=== PATIENT | female | born 1985 | race Caucasian/White ===

== ENCOUNTER 2018-02-25 12:33 | Emergency (ER) | payer SELFPAY ==
[2018-02-25 12:51] VITALS: BP 111/62; PULSE 59; TEMP 98.6; BMI 29.3
[2018-02-25] MEDS ORDERED: ONDANSETRON 4 MG/2 ML VIAL IVPUSH ONE (14:32)
[2018-02-25] MEDS ORDERED: SODIUM CHLORIDE 1,000 ML IV STA ×2 (14:33→15:38)
[2018-02-25 14:38] LABS: BASO % 0.6 % (0-2.0); EOS % 0.6 % (0-4.5); HEMATOCRIT 41.2 % (32.4-45.2); HEMOGLOBIN 14.1 GM/dL (10.7-15.3); LYMPH % 20.9 % (8-40); MCH 30.1 pg (25.7-33.7); MCHC 34.2 g/dl (32.0-36.0); MEAN PLT VOLUME 9.2 fl (7.5-11.1); MONO % 6.1 % (3.8-10.2); NEUT % 71.8 % (42.8-82.8); PLATELET COUNT 232 K/MM3 (134-434); RBC 4.68 M/mm3 (3.60-5.2); RDW 13.6 % (11.6-15.6); WHITE BLOOD COUNT 12.5 K/mm3 (4.0-10.0)
[2018-02-25] MEDS ORDERED: ONDANSETRON 4 MG/2 ML VIAL ONE (14:42)
--- NOTE | 2018-02-25 14:43 | PDOC ---
History of Present Illness <Thierry Mcguire - Last Filed: 02/25/18 16:39> - General History Source: Patient - History of Present Illness Initial Comments: 02/25/18 14:35 33F G7 [id number] w/ pmhx of multiple miscarriages presents with 1 week history of nausea associated with non-bloody vomiting. Pt states she last saw her OBGYN ( Dr. Little) a week ago and was given Reglan, but with no symptomatic improvement. Pt states she has experienced similar severe symptoms in the past during her previous pregnancies with severe dehydration that "caused the miscarriages." Admits to headaches, dizziness, lightheadedness. She also admits to lower abdominal pain. Denies fever/chills, chest pain, sob, urinary/bowel symptoms, blood in urine/stool, vaginal bleeding. PMHx: multiple miscarriages PSHx: Denies FHx: Denies Social: Denies tobacoo, alcohol, rec drug use. Denies recent travel. <Lucita Devi - Last Filed: 02/25/18 17:37> - General Chief Complaint: Nausea Stated Complaint: NAUSEA (7 WKS ) Time Seen by Provider: 02/25/18 14:03 Past History <ShaylaThierry - Last Filed: 02/25/18 16:39> - Past Medical History Anemia: No Asthma: No Cancer: No Cardiac Disorders: No COPD: No CHF: No Diabetes: No GI Disorders: Yes (hyperemesis) HTN: No Liver Disease: No - Immunization History Immunization Up to Date: No - Suicide/Smoking/Psychosocial Hx Smoking History: Never smoked Have you smoked in the past 12 months: No Information on smoking cessation initiated: No Hx Alcohol Use: No Drug/Substance Use Hx: No Substance Use Type: None Hx Substance Use Treatment: No <Lucita Devi - Last Filed: 02/25/18 17:37> - Past Medical History Allergies/Adverse Reactions: Allergies Allergy/AdvReac Type Severity Reaction Status Date / Time No Known Allergies Allergy Verified 02/25/18 12:49 Home Medications: Ambulatory Orders Nitrofurantoin Monohyd/M-Cryst [Macrobid -] 100 mg PO BID #14 capsule 10/26/14 Ondansetron [Zofran *Odt*] 8 mg SL TID PRN #21 od.tablet 10/26/14 Vitamins (Sjr) - 1 tab PO DAILY #30 tablet 10/26/14 Ondansetron [Zofran Odt -] 4 mg SL TID #21 od.tablet 02/25/18 Review of Systems - Review of Systems Able to Perform ROS?: Yes Is the patient limited Citizen Of [place] proficient: No Constitutional: No: Fever HEENTM: No: Recent change in vision Respiratory: No: Cough Cardiac (ROS): Yes: Lightheadedness. No: Chest Pain, Chest Tightness ABD/GI: Yes: Other (lower abdominal pain, below umbilicus). No: Diarrhea, Nausea, Vomiting : Yes: See HPI Neurological: Yes: Headache. No: Numbness, Paresthesia Hematologic/Lymphatic: No: Easy Bleeding, Easy Bruising <Lucita Devi - Last Filed: 02/25/18 17:37> *Physical Exam - Vital Signs Last Vital Signs Temp Pulse Resp BP Pulse Ox 98.6 F 59 L 18 111/62 100 02/25/18 12:49 02/25/18 12:49 02/25/18 12:49 02/25/18 12:49 02/25/18 12:49 <Thierry Mcguire - Last Filed: 02/25/18 16:39> - Vital Signs Last Vital Signs Temp Pulse Resp BP Pulse Ox 98.6 F 59 L 18 111/62 100 02/25/18 12:49 02/25/18 12:49 02/25/18 12:49 02/25/18 12:49 02/25/18 12:49 - Physical Exam General Appearance: Yes: Nourished, Appropriately Dressed HEENT: positive: Normal Voice Neck: positive: Supple. negative: Tender Respiratory/Chest: positive: Lungs Clear, Normal Breath Sounds Cardiovascular: positive: Regular Rhythm, Regular Rate, S1, S2 Vascular Pulses: Dorsalis-Pedis (R): 2+, Doralis-Pedis (L): 2+ Female Pelvic Exam: positive: normal external exam, adnexal tenderness (left) Gastrointestinal/Abdominal: positive: Normal Bowel Sounds Extremity: positive: Normal Range of Motion Neurologic: positive: restaurant recruiter II-XII NML intact, Motor Strength 5/5 <Lucita Devi - Last Filed: 02/25/18 17:37> ED Treatment Course - LABORATORY CBC & Chemistry Diagram: 02/25/18 14:04 02/25/18 14:04 - ADDITIONAL ORDERS Additional order review: Laboratory Results 02/25/18 02/25/18 14:31 14:04 Sodium 136 Potassium 3.9 Chloride 103 Carbon Dioxide 26 Anion Gap 7 L BUN 10 Creatinine 0.6 Creat Clearance w eGFR > 60 Random Glucose 93 Calcium 9.0 Total Bilirubin 0.5 AST 16 ALT 29 Alkaline Phosphatase 103 Total Protein 7.8 Albumin 3.8 Beta HCG, Quant 08346.2 Urine Color Yellow Urine Appearance Cloudy Urine pH 7.0 Ur Specific [place] 1.017 Urine Protein Negative Urine Glucose (UA) Negative Urine Ketones Trace H Urine Blood Negative Urine Nitrite Negative Urine Bilirubin Negative Urine Urobilinogen 4.0 e.u/dl H Ur Leukocyte Esterase 1+ H Urine WBC (Auto) 4 Urine RBC (Auto) 2 Ur Epithelial Cells Moderate Urine Bacteria Moderate Urine Mucus Rare Urine Yeast Moderate 02/25/18 14:04 RBC 4.68 MCV 88.0 MCHC 34.2 RDW 13.6 MPV 9.2 D Neutrophils % 71.8 Lymphocytes % 20.9 D Monocytes % 6.1 Eosinophils % 0.6 D Basophils % 0.6 - Medications Given in the ED: ED Medications Discontinued Medications Generic Name Dose Route Start Last Admin Trade Name Paula PRN Reason Stop Dose Admin Sodium Chloride 1,000 mls @ 1,000 mls/hr 02/25/18 14:33 02/25/18 14:46 Normal Saline - IV 02/25/18 15:32 1,000 mls/hr ASDIR STA Administration Sodium Chloride 1,000 mls @ 1,000 mls/hr 02/25/18 15:38 02/25/18 15:55 Normal Saline - IV 02/25/18 16:37 1,000 mls/hr ASDIR STA Administration Ondansetron HCl 4 mg 02/25/18 14:32 02/25/18 14:46 Zofran Injection IVPUSH 02/25/18 14:33 4 mg ONCE ONE Administration <Thierry Mcguire - Last Filed: 02/25/18 16:39> - LABORATORY CBC & Chemistry Diagram: 02/25/18 14:04 02/25/18 14:04 <Lucita Devi - Last Filed: 02/25/18 17:37> Medical Decision Making - Medical Decision Making 02/25/18 15:01 Nausea and vomiting in setting of -will give Zofran, IVf -CBC/CMP -continue to monitor for symptomatic improvement 02/25/18 15:23 -Transabdominal u/s done by Dr. Martinez/Dr. Green: impression: live IUP, 7 wk 0 days by CRL. impression: normal gallbladder. 02/25/18 15:39 Pt admits to symptomatic improvement. -Additional IVf given -Cont to monitor 02/25/18 17:25 DC to home with recommendation to follow up with OBGYN. Recommended to take Zofran, Reglan, Benadryl. Advised to eat bland diet as tolerated. <Lucita Devi - Last Filed: 02/25/18 17:37> *DC/Admit/Observation/Transfer - Discharge Dispostion Decision to Admit order: No <Thierry Mcguire - Last Filed: 02/25/18 16:39> - Discharge Dispostion Decision to Admit order: No <Lucita Devi - Last Filed: 02/25/18 17:37> Diagnosis at time of Disposition: Hyperemesis gravidarum - Discharge Dispostion Disposition: HOME Condition at time of disposition: Improved - Prescriptions Prescriptions: Ondansetron [Zofran Odt -] 4 mg SL TID #21 od.tablet - Referrals Referrals: Yudy Little MD [Staff Physician] - - Patient Instructions Printed Discharge Instructions: Hyperemesis Gravidarum Additional Instructions: You were seen in the ED for complaints of persistent nausea. In the ED, you were given IV Zofran and fluids for your symptoms. An abdominal ultrasound was performed that showed an intrauterine of 7 weeks with activity. Your symptoms improved during your hospital. Please continue taking Reglan, Zofran as prescribed. You may take Benadryl once a day for the next 1-2 days as needed. Today fluids only if no vomiting by tomorrow midday may proceed to a bland diet. Return to ED if unable to tolerate fluids persistent vomiting any severe abdominal pain or for any concerns follow-up with your MAILROOM COORDINATOR in 2-3 days. - Post Discharge Activity Forms/Work/School Notes: Back to Work
[2018-02-25 14:45] LABS: URINE APPEARANCE CLOUDY; URINE BILIRUBIN NEGATIVE (<2.0 mg/dL); URINE COLOR YELLOW; URINE GLUCOSE (UA) NEGATIVE (NEGATIVE); URINE KETONE TRACE (NEGATIVE); URINE LEUK ESTERASE 1+ (NEGATIVE); URINE NITRITE NEGATIVE (NEGATIVE); URINE PROTEIN NEGATIVE (NEGATIVE); URINE UROBILINOGEN 4.0 E.U/dl mg/dL (0.2-1.0)
[2018-02-25 14:51] LABS: EPI CELLS MODERATE /HPF (FEW); URINE BACTERIA MODERATE /hpf (NONE SEEN); URINE MUCUS RARE; YEAST MODERATE
--- NOTE | 2018-02-25 15:25 | PDOC ---
*Physical Exam - Vital Signs Last Vital Signs Temp Pulse Resp BP Pulse Ox 98.6 F 59 L 18 111/62 100 02/25/18 12:49 02/25/18 12:49 02/25/18 12:49 02/25/18 12:49 02/25/18 12:49 - Physical Exam General Appearance: Yes: Nourished Gastrointestinal/Abdominal: positive: Flat, Soft. negative: Tender ED Treatment Course - LABORATORY CBC & Chemistry Diagram: 02/25/18 14:04 02/25/18 14:04 - ADDITIONAL ORDERS Additional order review: Laboratory Results 02/25/18 14:31 Urine Color Yellow Urine Appearance Cloudy Urine pH 7.0 Ur Specific [place] 1.017 Urine Protein Negative Urine Glucose (UA) Negative Urine Ketones Trace H Urine Blood Negative Urine Nitrite Negative Urine Bilirubin Negative Urine Urobilinogen 4.0 e.u/dl H Ur Leukocyte Esterase 1+ H Urine WBC (Auto) 4 Urine RBC (Auto) 2 Ur Epithelial Cells Moderate Urine Bacteria Moderate Urine Mucus Rare Urine Yeast Moderate 02/25/18 14:04 RBC 4.68 MCV 88.0 MCHC 34.2 RDW 13.6 MPV 9.2 D Neutrophils % 71.8 Lymphocytes % 20.9 D Monocytes % 6.1 Eosinophils % 0.6 D Basophils % 0.6 - Medications Given in the ED: ED Medications Discontinued Medications Generic Name Dose Route Start Last Admin Trade Name Freq PRN Reason Stop Dose Admin Ondansetron HCl 4 mg 02/25/18 14:32 02/25/18 14:46 Zofran Injection IVPUSH 02/25/18 14:33 4 mg ONCE ONE Administration Medical Decision Making - Medical Decision Making 02/25/18 15:21 33 you F (6ab) here approx 7 weeks with n/v. has thrown up 3 times today for last few days. has had hyperemesis with prior pregnancies. called to bedside to do pocus , ob evalute iup and well being, focused ED ultrasound transabdominal OB indication: document iup, well being. uterus scanned in two planes using curvilinear probe. gestational sac noted, pole noted, crown rump length measured 7 wk 0 days. heart rate noted 122 bpm. impression: live IUP, 7 wk 0 days by CRL. focused ED ultrasound ruq, indication , n/v r/o gallstones gallbladder scanned in two planes. no wall thickening, no stones, negative sonographyic diana's signs. anterior gallbladder wall measured 1.6,, common bile duct measured 3 mm. impression: normal gallbladder. cirilli/ [place]
[2018-02-25 15:28] LABS: ALBUMIN 3.8 g/dl (3.4-5.0); ALK PHOS 103 U/L (45-117); ANION GAP 7 MMOL/L (8-16); BILIRUBIN,TOTAL 0.5 mg/dL (0.2-1); BLOOD UREA NITROGEN 10 mg/dL (7-18); CHLORIDE 103 mmol/L (98-107); CO2 26 mmol/L (21-32); CREATININE 0.6 mg/dL (0.55-1.3); GLUCOSE,RANDOM 93 mg/dL (74-106); POTASSIUM 3.9 mmol/L (3.5-5.1); SGOT/AST 16 U/L (15-37); SGPT/ALT 29 U/L (13-61); SODIUM 136 mmol/L (136-145); TOT PROT 7.8 g/dl (6.4-8.2)
--- NOTE | 2018-02-25 15:47 | PDOC ---
Attending Attestation - HPI HPI: 02/25/18 15:49 The patient is a 33 year old A6 female currently 7 weeks who presents to the emergency department for evaluation of a 1 week history of nausea. Patient reports a 1 week history of nausea with non bloody emesis. Patient also reports mild abdominal pain and decrease in PO tolerance. She states she was given Reglan by her DADO OPERATOR last week. Patient reports having ultrasound done last week by Dr. Litlte which shows no confirmed IUP. - Physicial Exam PE: Vitals: Triage Vital signs reviewed General Appearance: no acute distress, well nourished well developed, Head: Atraumatic, normocephalic Neck: Supple Chest Wall: Nontender Cardiac: Regular rate and rhythm, no murmurs, no rubs, no gallops, Lungs: Clear to auscultation bilateral, good air movement bilaterally, Abdomen: (+)Very mild diffuse abdominal discomfort. Extremities: Full range of motion to all extremities, no cyanosis, clubbing, or edema Skin: Warm and dry, no rashes or lesions, no petechiae Psych: normal mood, normal affect. - Medical Decision Making The patient is a 33 year old A6 female currently 7 weeks who presents to the emergency department for evaluation of a 1 week history of nausea. Plan: CBC CMP IV medication Transvaginal Ultrasound Urinalysis <Manuelito Bhagat - Last Filed: 02/25/18 15:49> - Resident Resident Name: Lucita Devi - ED Attending Attestation I have performed the following: I have examined & evaluated the patient, The case was reviewed & discussed with the resident, I agree w/resident's findings & plan, Exceptions are as noted - Medical Decision Making Positive IUP on transvaginal ultrasound. History examination consistent with hyperemesis gravidarum. Status post Zofran patient tolerating fluids. We'll discharge on her prescription for Reglan will add a prescription for Zofran and allow patient to take when necessary Benadryl as needed at night for nausea. She'll follow-up with her DADO OPERATOR in 2-3 days she'll return to emergency department for any severe worsening symptoms or for any concerns. <Thierry Mcguire - Last Filed: 02/25/18 16:26> Attestations - Attestations Documentation prepared by Manuelito Bhagat, acting as medical staff services coordinator for Thierry Mcguire MD. <Manuelito Bhagat - Last Filed: 02/25/18 15:49>
== END 2018-02-25 17:01 | disposition home or self-care (01) ==
LOC: JER 12:33
PROC: 3E0337Z Introduction of Electrolytic and Water Balance Substance into Peripheral Vein, Percutaneous Approach (ICD-10-PCS; principal; 2018-02-25)
PROC: 3E033GC Introduction of Other Therapeutic Substance into Peripheral Vein, Percutaneous Approach (ICD-10-PCS; 2018-02-25)
DX: O26.891 Other specified pregnancy related conditions, first trimester (principal); O21.0 Mild hyperemesis gravidarum; Z3A.01 Less than 8 weeks gestation of pregnancy
CPT/HCPCS: 36415; 80053; 81003; 81015; 84702; 85025; 87086; 99282-25; J7030

== ENCOUNTER 2018-03-02 18:31 | Observation (INO) | payer BC ==
[2018-03-02 19:03] VITALS: BMI 29.1
--- NOTE | 2018-03-02 19:24 | PDOC ---
History of Present Illness - General Chief Complaint: Nausea/Vomiting Stated Complaint: FATIGUE, DEHYDRATION Time Seen by Provider: 03/02/18 19:16 - History of Present Illness Initial Comments: 33-year-old A5 currently seven weeks with no significant past medical history currently seven weeks presenting with hyperemesis. Patient presented on 02/25/18 for the same complaint. She states that she has up to 10 episodes of NBNB vomiting per day for the last two weeks. Patient reports lower abdominal pain that she attributes to retching. She believes she has lost weight but has not weighed herself on a scale. Patient has had hyperemesis in all her previous pregnancies and was treated with Reglan and Zofran IV as po meds do not offer any palliation of her symptoms. In her most recent , patient was admitted to the hospital for five days. Hyperemesis symptoms diminished as her progressed in the second and third trimester. Her first four pregnancies were electively terminated because she could not tolerate the hyperemesis. She reports that her fifth resulted in miscarriage due to dehydration. Currently endorses weakness and lightheadedness as she has not been able to keep anything down. Patient also reports constipation as her last bowel movement was two weeks ago. Denies fevers, chills , chest pain, shortness of breath, dysuria, hematuria, contractions, vaginal discharge, or vaginal bleeding. Past History - Past Medical History Allergies/Adverse Reactions: Allergies Allergy/AdvReac Type Severity Reaction Status Date / Time No Known Allergies Allergy Verified 03/02/18 18:59 Home Medications: Ambulatory Orders Nitrofurantoin Monohyd/M-Cryst [Macrobid -] 100 mg PO BID #14 capsule 10/26/14 Ondansetron [Zofran *Odt*] 8 mg SL TID PRN #21 od.tablet 10/26/14 Vitamins (Sjr) - 1 tab PO DAILY #30 tablet 10/26/14 Ondansetron [Zofran Odt -] 4 mg SL TID #21 od.tablet 02/25/18 Nitrofurantoin Monohyd/M-Cryst [Macrobid -] 100 mg PO BID #14 capsule 03/02/18 Anemia: No Asthma: No Cancer: No Cardiac Disorders: No COPD: No CHF: No Diabetes: No GI Disorders: Yes (hyperemesis) HTN: No Liver Disease: No - Immunization History Immunization Up to Date: No - Suicide/Smoking/Psychosocial Hx Smoking History: Never smoked Have you smoked in the past 12 months: No Hx Alcohol Use: No Drug/Substance Use Hx: No Substance Use Type: None Hx Substance Use Treatment: No Review of Systems - Review of Systems Comments:: Constitutional: no fever, no chills HEENT: no throat pain, no dysphagia Cardiovascular: no chest pain, no palpitations Respiratory: no cough, no shortness of breath Gastrointestinal: +abdominal pain, +nausea, +vomiting, no diarrhea, + constipation Genitourinary: no dysuria, no frequency Musculoskeletal: no myalgia, no arthralgia Skin: no rash, no itching Neurologic: +headache, +lightheadedness *Physical Exam - Vital Signs Last Vital Signs Temp Pulse Resp BP Pulse Ox 99.2 F 63 18 123/80 98 03/02/18 19:02 03/02/18 19:02 03/02/18 19:02 03/02/18 19:02 03/02/18 19:02 - Physical Exam Comments: General: Awake, alert, and fully oriented, in no acute distress Head: No signs of trauma Eyes: EOMI, sclera anicteric ENT: Dry mucus membranes Neck: Normal ROM, supple Lungs: Lungs clear, Normal breath sounds Cardio: Regular rhythm, S1 and S2 present Abdomen: Tender to palpation in suprapubic area. Soft, nondistended. No guarding , no rebound, no masses. No CVA tenderness Extremities: Normal range of motion, Distal pulses present SKIN: Warm, Dry, normal turgor Neurologic: Cranial nerves II through XII grossly intact. Normal speech ED Treatment Course - LABORATORY CBC & Chemistry Diagram: 03/02/18 20:18 03/02/18 20:18 Medical Decision Making - Medical Decision Making 33-year-old A5 currently seven weeks with no significant past medical history currently seven weeks presenting with hyperemesis. -Labs -IV fluids -IV zofran -Will reassess 03/02/18 20:05 Will reassess. 03/02/18 20:38 Patient still feeling nauseous. Ordered Reglan and another 1LNS WBC=16.8 03/02/18 21:03 Patient reporting only minimal relief of her nausea. D5-LR running. Will reassess 03/02/18 22:[address] Sheridan who accepted patient for admission 03/02/18 22:30 *DC/Admit/Observation/Transfer Diagnosis at time of Disposition: Hyperemesis gravidarum - Discharge Dispostion Condition at time of disposition: Guarded Decision to Admit order: Yes - Prescriptions Prescriptions: Nitrofurantoin Monohyd/M-Cryst [Macrobid -] 100 mg PO BID #14 capsule - Referrals - Patient Instructions - Post Discharge Activity
[2018-03-02] MEDS ORDERED: SODIUM CHLORIDE 1,000 ML IV STA ×2 (19:43→21:05)
[2018-03-02] MEDS ORDERED: ONDANSETRON 4 MG/2 ML VIAL IVPUSH ONE (19:43)
--- NOTE | 2018-03-02 19:48 | PDOC ---
Attending Attestation - HPI HPI: 03/02/18 19:56 The patient is a 33 year old female, A4, 7 weeks with no significant PMH who presents to the emergency department with hyperemesis for the past 2 weeks. Patient denies any complications in her up until this point. Patient reports she has been vomiting up to 10 times per day over the past 2 weeks and associated abdominal pain. Patient has been eating less as she does not want to throw up. Patient saw Dr. Kingsley, TABLE RUNNER, who prescribed her zofran and reglan with no relief of her symptoms. Patient was admitted for hyperemesis for 5 days in her prior . The patient denies chest pain, shortness of breath, headache and dizziness. Denies fever, chills, diarrhea and constipation. Denies dysuria, frequency, urgency and hematuria. Allergies: NKA Past surgical history: None reported. Social history: No reported alcohol, drug or cigarette use. - Physicial Exam PE: 03/02/18 21:10 ADULT EXAM GENERAL: Awake, alert, and fully oriented, in no acute distress HEAD: No signs of trauma EYES: PERRLA, EOMI, sclera anicteric, conjunctiva clear ENT: Auricles normal inspection, hearing grossly normal, nares patent, oropharynx clear without exudates. Moist mucosa NECK: Normal ROM, supple, no lymphadenopathy, JVD, or masses LUNGS: Breath sounds equal, clear to auscultation bilaterally. No wheezes, and no crackles HEART: Regular rate and rhythm, normal S1 and S2, no murmurs, rubs or gallops ABDOMEN: Soft, nontender, normoactive bowel sounds. No guarding, no rebound. No masses EXTREMITIES: Normal range of motion, no edema. No clubbing or cyanosis. No cords , erythema, or tenderness NEUROLOGICAL: Cranial nerves II through XII grossly intact. Normal speech, normal gait SKIN: Warm, Dry, normal turgor, no rashes or lesions noted. <Connie Ivan - Last Filed: 03/02/18 21:10> - Resident Resident Name: Sissy Slater - ED Attending Attestation I have performed the following: I have examined & evaluated the patient, The case was reviewed & discussed with the resident, I agree w/resident's findings & plan - Medical Decision Making 03/02/18 19:51 Pt had a UTI the last time she was here. She will be retested and treated with NSS and macrobid and zofran. 03/02/18 22:22 Pt received 1L NSS and 1L D5LR and zofran and reglan and she is still not feeling better. We will speak to her MARKETING INTELLIGENCE ANALYST Dr. Little for possible admission to obs. <Beatriz Ng - Last Filed: 03/02/18 22:23>
[2018-03-02] MEDS ORDERED: NITROFURANTOIN MACROCRYSTAL 50 MG CAPSULE (FP) PO SCH (20:00)
[2018-03-02] MEDS ORDERED: ONDANSETRON 4 MG/2 ML VIAL ONE ×3 (20:16→22:38)
[2018-03-02 20:23] LABS: BASO % 0.6 % (0-2.0); EOS % 0.4 % (0-4.5); HEMATOCRIT 38.9 % (32.4-45.2); HEMOGLOBIN 13.5 GM/dL (10.7-15.3); LYMPH % 18.3 % (8-40); MCHC 34.7 g/dl (32.0-36.0); MEAN CELL VOLUME 86.7 fl (80-96); MEAN PLT VOLUME 9.2 fl (7.5-11.1); MONO % 7.1 % (3.8-10.2); NEUT % 73.6 % (42.8-82.8); PLATELET COUNT 234 K/MM3 (134-434); RBC 4.49 M/mm3 (3.60-5.2); RDW 13.6 % (11.6-15.6); WHITE BLOOD COUNT 16.8 K/mm3 (4.0-10.0)
[2018-03-02] MEDS ORDERED: NITROFURANTOIN MACROCRYSTAL 50 MG CAPSULE (FP) ONE (20:29)
[2018-03-02] MEDS ORDERED: METOCLOPRAMIDE HCL INJECTION 10 MG/2 ML VIAL IVPUSH ONE (21:05)
[2018-03-02 21:07] LABS: URINE APPEARANCE CLEAR; URINE BILIRUBIN NEGATIVE (<2.0 mg/dL); URINE COLOR YELLOW; URINE GLUCOSE (UA) NEGATIVE (NEGATIVE); URINE KETONE TRACE (NEGATIVE); URINE LEUK ESTERASE TRACE (NEGATIVE); URINE NITRITE NEGATIVE (NEGATIVE); URINE PROTEIN NEGATIVE (NEGATIVE); URINE UROBILINOGEN 4.0 E.U/dl mg/dL (0.2-1.0)
[2018-03-02] MEDS ORDERED: METOCLOPRAMIDE HCL INJECTION 10 MG/2 ML VIAL ONE (21:07)
[2018-03-02 21:10] LABS: EPI CELLS FEW /HPF (FEW); URINE BACTERIA FEW /hpf (NONE SEEN); URINE MUCUS RARE
[2018-03-02] MEDS ORDERED: DEXTROSE 5%-LACTATED RINGERS 1,000 ML IV SCH (21:15)
[2018-03-02 21:28] LABS: ALBUMIN 3.8 g/dl (3.4-5.0); ALK PHOS 100 U/L (45-117); ANION GAP 11 MMOL/L (8-16); BILIRUBIN,TOTAL 0.3 mg/dL (0.2-1); BLOOD UREA NITROGEN 11 mg/dL (7-18); CALCIUM 8.8 mg/dL (8.5-10.1); CHLORIDE 102 mmol/L (98-107); CO2 25 mmol/L (21-32); CREATININE 0.7 mg/dL (0.55-1.3); GLUCOSE,RANDOM 70 mg/dL (74-106); LIPASE 193 U/L (73-393); POTASSIUM 3.8 mmol/L (3.5-5.1); SGOT/AST 16 U/L (15-37); SGPT/ALT 39 U/L (13-61); SODIUM 138 mmol/L (136-145); TOT PROT 7.8 g/dl (6.4-8.2)
[2018-03-02] MEDS ORDERED: PROMETHAZINE HCL 25 MG/1 ML VIAL IVPB PRN (22:29)
[2018-03-02] MEDS ORDERED: FAMOTIDINE 20 MG/50 ML IVPB 20 MG/50 ML MG IVPB ONE (22:37)
[2018-03-02] MEDS: METOCLOPRAMIDE HCL INJECTION 10 MG/2 ML VIAL IVPUSH SCH ×2 (22:39→23:07)
[2018-03-02] MEDS: FAMOTIDINE 20 MG/50 ML IVPB 20 MG/50 ML MG IVPB SCH (22:39)
[2018-03-02] MEDS: ONDANSETRON 4 MG/2 ML VIAL IVPB SCH ×2 (22:39→23:07)
[2018-03-02] MEDS: DEXTROSE 5%-NORMAL SALINE 1,000 ML IV SCH (23:07)
--- NOTE | 2018-03-02 23:12 | HP ---
Admitting History and Physical - Admission Chief Complaint: nausea and vomiting History of Present Illness: The patient is a 33 year old female, female with SIUP at approx 7 weeks with no significant PMH who presents hyperemesis for the past 2 weeks. Patient denies any complications in her up until this point. Pt has h/ o hyperemesis with prior pregnancies so severe that she elected to terminate the pregnancies. Patient reports she has been vomiting up to 10 times per day over the past 2 weeks and has lost weight. Has been taking reglan with little relief. History Source: Patient, Medical Record Limitations to Obtaining History: No Limitations - Past Medical History Gastrointestinal: Yes: Other (hyperemesis gravidarum) Reproductive: No: Ectopic ...: Yes ...: 7 ...Para: 5 - Smoking History Smoking history: Never smoked Have you smoked in the past 12 months: No - Alcohol/Substance Use Hx Alcohol Use: No History of Substance Use: reports: None Home Medications - Allergies Allergies/Adverse Reactions: Allergies Allergy/AdvReac Type Severity Reaction Status Date / Time No Known Allergies Allergy Verified 03/02/18 18:59 - Home Medications Home Medications: Ambulatory Orders Nitrofurantoin Monohyd/M-Cryst [Macrobid -] 100 mg PO BID #14 capsule 10/26/14 Ondansetron [Zofran *Odt*] 8 mg SL TID PRN #21 od.tablet 10/26/14 Vitamins (Sjr) - 1 tab PO DAILY #30 tablet 10/26/14 Ondansetron [Zofran Odt -] 4 mg SL TID #21 od.tablet 02/25/18 Nitrofurantoin Monohyd/M-Cryst [Macrobid -] 100 mg PO BID #14 capsule 03/02/18 Review of Systems - Review of Systems Constitutional: reports: Unintentional Wgt. Loss, Weakness Eyes: reports: No Symptoms HENT: reports: No Symptoms Neck: reports: No Symptoms Cardiovascular: denies: Chest Pain, Palpitations, Shortness of Breath Gastrointestinal: reports: Abdominal Pain, Nausea, Vomiting. denies: Diarrhea Genitourinary: reports: No Symptoms. denies: Dysuria, Vaginal Bleeding Breasts: reports: No Symptoms Reported Integumentary: reports: No Symptoms Neurological: reports: No Symptoms Endocrine: reports: No Symptoms Hematology/Lymphatic: reports: No Symptoms Psychiatric: reports: No Symptoms Physical Examination Vital Signs: Vital Signs Temperature 99.2 F 03/02/18 19:02 Pulse Rate 63 03/02/18 19:02 Respiratory Rate 18 03/02/18 19:02 Blood Pressure 123/80 03/02/18 19:02 O2 Sat by Pulse Oximetry (%) 98 03/02/18 19:02 Constitutional: Yes: Well Nourished, No Distress, Calm Eyes: Yes: Conjunctiva Clear, EOM Intact HENT: Yes: Atraumatic, Normocephalic Cardiovascular: Yes: Regular Rate and Rhythm Gastrointestinal: Yes: Soft Neurological: Yes: Alert, Oriented Psychiatric: Yes: Alert, Oriented Labs: CBC, BMP 03/02/18 20:18 03/02/18 20:18 Problem List - Problems (1) Hyperemesis affecting , antepartum Code(s): O21.0 - MILD HYPEREMESIS GRAVIDARUM Assessment/Plan 33 y/o with SIUP at approx 7 weeks gestation, nausea, vomiting, hyperemesis IV hydration continue with anti emetics add on pepcid recheck electrolytes daily clear liquids for now, advance diet as pt able to tolerate to find adequate po regimen for outpatient therapy
[2018-03-03] MEDS: METOCLOPRAMIDE HCL INJECTION 10 MG/2 ML VIAL IVPUSH SCH ×2 (02:56→08:43)
[2018-03-03] MEDS: ONDANSETRON 4 MG/2 ML VIAL IVPB SCH ×4 (02:57→21:23)
[2018-03-03 07:27] LABS: ANION GAP 9 MMOL/L (8-16); BLOOD UREA NITROGEN 7 mg/dL (7-18); CALCIUM 7.8 mg/dL (8.5-10.1); CHLORIDE 106 mmol/L (98-107); CO2 23 mmol/L (21-32); CREATININE 0.5 mg/dL (0.55-1.3); GLUCOSE,RANDOM 92 mg/dL (74-106); POTASSIUM 3.9 mmol/L (3.5-5.1); SODIUM 138 mmol/L (136-145)
[2018-03-03] MEDS: FAMOTIDINE 20 MG/50 ML IVPB 20 MG/50 ML MG IVPB SCH ×2 (10:00→21:25)
[2018-03-03] MEDS: PROMETHAZINE HCL 25 MG/1 ML VIAL IVPB SCH ×2 (13:00→19:18)
--- NOTE | 2018-03-03 18:51 | EKG ---
Test Reason : Blood Pressure : / mmHG Vent. Rate : 061 BPM Atrial Rate : 061 BPM P-R Int : 154 ms QRS Dur : 084 ms QT Int : 416 ms P-R-T Axes : 043 071 047 degrees QTc Int : 418 ms NORMAL SINUS RHYTHM NORMAL ECG WHEN COMPARED WITH ECG OF 22-OCT-2014 22:56, NO SIGNIFICANT CHANGE WAS FOUND Confirmed by DHRUV WONG MD ([id number]) on 03/03/2018 6:51:03 PM Referred By: Confirmed By:DHRUV WONG MD
--- NOTE | 2018-03-03 21:05 | PN ---
Progress Note, Physician Chief Complaint: Pt with no vomiting since approx 1am. still with nausea - Current Medication List Current Medications: Active Medications Diphenhydramine HCl (Benadryl Injection -) 25 mg IVPB ONCE ONE Stop: 03/03/18 22:01 Famotidine/Sodium Chloride (Pepcid 20 Mg Premixed Ivpb -) 20 mg in 50 mls @ 100 mls/hr IVPB BID MARI Last Admin: 03/03/18 10:00 Dose: 100 mls/hr Dextrose/Sodium Chloride (D5-Ns -) 1,000 mls @ 125 mls/hr IV ASDIR MARI Last Admin: 03/02/18 23:07 Dose: 125 mls/hr Ondansetron HCl (Zofran Injection) 8 mg IVPB Q6H-IV MARI Last Admin: 03/03/18 15:53 Dose: 8 mg Multivit/Folic Acid/Iron ( Vitamins (Sjr) -) 1 tab PO DAILY MARI - Objective Vital Signs: Vital Signs Temperature 99.1 F 03/03/18 19:31 Pulse Rate 62 03/03/18 19:31 Respiratory Rate 18 03/03/18 19:31 Blood Pressure 120/83 03/03/18 19:31 O2 Sat by Pulse Oximetry (%) 100 03/03/18 00:30 Constitutional: Yes: Well Nourished, No Distress Eyes: Yes: Conjunctiva Clear HENT: Yes: Atraumatic Cardiovascular: Yes: Regular Rate and Rhythm Extremities: Yes: WNL Neurological: Yes: Alert, Oriented Labs: CBC, BMP 03/02/18 20:18 03/03/18 06:40 Problem List - Problems (1) Hyperemesis affecting , antepartum Code(s): O21.0 - MILD HYPEREMESIS GRAVIDARUM Assessment/Plan continue reglan and zofran advance diet as tolerated will attempt to switvh to PO regimen once tolerating PO
[2018-03-04] MEDS: DEXTROSE 5%-NORMAL SALINE 1,000 ML IV SCH (00:55)
[2018-03-04] MEDS: ONDANSETRON 4 MG/2 ML VIAL IVPB SCH ×3 (03:03→15:37)
[2018-03-04 06:14] VITALS: TEMP 98.6
[2018-03-04] MEDS ORDERED: PRENATAL VITAMINS W/ FOLIC ACID TABLET (FP) PO SCH (10:00)
--- NOTE | 2018-03-04 10:11 | PN ---
Progress Note (SOAP) - Subjective Chief Complaint: Pt was able to tolerate something small this morn +nausea no vomiting yet - Current Medications Current Medications: Active Medications Famotidine/Sodium Chloride (Pepcid 20 Mg Premixed Ivpb -) 20 mg in 50 mls @ 100 mls/hr IVPB BID [facility] Last Admin: 03/03/18 21:25 Dose: 100 mls/hr Dextrose/Sodium Chloride (D5-Ns -) 1,000 mls @ 125 mls/hr IV ASDIR MARI Last Admin: 03/04/18 00:55 Dose: 125 mls/hr Ondansetron HCl (Zofran Injection) 8 mg IVPB Q6H-IV MARI Last Admin: 03/04/18 08:58 Dose: 8 mg Multivit/Folic Acid/Iron ( Vitamins (Sjr) -) 1 tab PO DAILY [facility] - Objective Vital Signs: Vital Signs Temperature 98.6 F 03/04/18 08:34 Pulse Rate 62 03/04/18 08:34 Respiratory Rate 18 03/04/18 08:34 Blood Pressure 118/75 03/04/18 08:34 O2 Sat by Pulse Oximetry (%) 100 03/03/18 00:30 Constitutional: Yes: Well Nourished, No Distress, Anxious Gastrointestinal: Yes: WNL, Soft Breast(s): Yes: WNL Musculoskeletal: Yes: WNL Extremities: Yes: WNL Labs Lab Results: CBC, BMP 03/02/18 20:18 03/03/18 06:40 Problem List - Problems (1) Hyperemesis affecting , antepartum Code(s): O21.0 - MILD HYPEREMESIS GRAVIDARUM Assessment/Plan IUP at 8 week hyperemesis gravidarum with vomiting Plan if tolerates lunch then will DC home
[2018-03-04] MEDS: FAMOTIDINE 20 MG/50 ML IVPB 20 MG/50 ML MG IVPB SCH (10:38)
[2018-03-04 14:41] VITALS: BP 109/50; PULSE 58
== END 2018-03-04 17:00 | disposition home or self-care (01) ==
LOC: JER 18:31 → JERBED 22:30 → J3W 03-03 00:36
PROVIDERS: ADMIT Obstetrics & Gynecology; ATTEND Obstetrics & Gynecology
PROC: 3E033GC Introduction of Other Therapeutic Substance into Peripheral Vein, Percutaneous Approach (ICD-10-PCS; principal; 2018-03-02)
PROC: 3E0337Z Introduction of Electrolytic and Water Balance Substance into Peripheral Vein, Percutaneous Approach (ICD-10-PCS; 2018-03-02)
DX: O21.0 Mild hyperemesis gravidarum (principal); Z3A.01 Less than 8 weeks gestation of pregnancy
CPT/HCPCS: 36415; 80048; 80053; 81003; 81015; 83690; 84702; 85025; 87086; 93005; 93010; 99284-25; G0378; J7030

== ENCOUNTER 2018-03-05 15:38 | Emergency (ER) | payer BC ==
--- NOTE | 2018-03-05 16:10 | PDOC ---
Rapid Medical Evaluation Time Seen by Provider: 03/05/18 16:07 Medical Evaluation: Allergies Allergy/AdvReac Type Severity Reaction Status Date / Time No Known Allergies Allergy Verified 03/02/18 18:59 I have performed a brief in-person evaluation of this patient. The patient presents with a chief complaint of: 8 weeks . vomiting. cannot keep anything down. Patient was discharged from admission yesterday for same symptoms Pertinent physical exam findings: patient is "spitting up" into vomit bag I have ordered the following: labs, IV insert, UA/culture The patient will proceed to the ED for further evaluation. Discharge Disposition - Diagnosis Hyperemesis gravidarum - Referrals - Patient Instructions - Post Discharge Activity
[2018-03-05 16:14] VITALS: BP 125/62; PULSE 70; TEMP 99.4; BMI 29.2
[2018-03-05 16:33] LABS: BASO % 0.9 % (0-2.0); EOS % 0.6 % (0-4.5); HEMATOCRIT 41.9 % (32.4-45.2); HEMOGLOBIN 13.8 GM/dL (10.7-15.3); LYMPH % 17.1 % (8-40); MCH 28.8 pg (25.7-33.7); MEAN CELL VOLUME 87.1 fl (80-96); MEAN PLT VOLUME 9.3 fl (7.5-11.1); MONO % 6.5 % (3.8-10.2); NEUT % 74.9 % (42.8-82.8); PLATELET COUNT 227 K/MM3 (134-434); RBC 4.81 M/mm3 (3.60-5.2); RDW 13.4 % (11.6-15.6)
[2018-03-05] MEDS ORDERED: METOCLOPRAMIDE HCL INJECTION 10 MG/2 ML VIAL IVPUSH ONE (16:52)
[2018-03-05] MEDS ORDERED: SODIUM CHLORIDE 0.9% 500 ML INFUS.BAG IV ONE (16:52)
[2018-03-05 17:06] LABS: URINE APPEARANCE CLOUDY; URINE BILIRUBIN NEGATIVE (<2.0 mg/dL); URINE COLOR YELLOW; URINE GLUCOSE (UA) NEGATIVE (NEGATIVE); URINE KETONE 2+ (NEGATIVE); URINE LEUK ESTERASE NEGATIVE (NEGATIVE); URINE NITRITE NEGATIVE (NEGATIVE); URINE PROTEIN NEGATIVE (NEGATIVE); URINE UROBILINOGEN 4.0 E.U/dl mg/dL (0.2-1.0)
[2018-03-05] MEDS ORDERED: METOCLOPRAMIDE HCL INJECTION 10 MG/2 ML VIAL ONE (17:09)
[2018-03-05 17:16] LABS: ALBUMIN 3.8 g/dl (3.4-5.0); ALK PHOS 99 U/L (45-117); ANION GAP 11 MMOL/L (8-16); BILIRUBIN,TOTAL 0.5 mg/dL (0.2-1); BLOOD UREA NITROGEN 9 mg/dL (7-18); CALCIUM 8.8 mg/dL (8.5-10.1); CHLORIDE 102 mmol/L (98-107); CO2 25 mmol/L (21-32); CREATININE 0.6 mg/dL (0.55-1.3); GLUCOSE,RANDOM 70 mg/dL (74-106); LIPASE 177 U/L (73-393); POTASSIUM 3.6 mmol/L (3.5-5.1); SGOT/AST 24 U/L (15-37); SGPT/ALT 50 U/L (13-61); SODIUM 137 mmol/L (136-145); TOT PROT 7.8 g/dl (6.4-8.2)
--- NOTE | 2018-03-05 17:19 | PDOC ---
History of Present Illness - General Chief Complaint: Nausea/Vomiting Stated Complaint: VOMITING,8 WKS Time Seen by Provider: 03/05/18 16:07 - History of Present Illness Initial Comments: Jailyn Villalpando is a 33yo woman currently 8wks who presents with hyperemesis. She has been seen twice in the past week with the same complaint, and she was admitted from 03/02 for vomiting and inability to tolerate PO, discharged home yesterday. Ms Villalpando states that she has had the same symptoms in all of her previous pregnancies, with the nausea and vomiting severe to the point that she has terminated several pregnancies because she was unable to deal with her symptoms. She states that the hyperemesis lasted until 14-15 weeks during her one successful . Ms Villalpando reports that she was given PO reglan at home after her recent visits, but she does not feel that it improves her symptoms at all. She has also never had any relief with zofran previously. She has never tried doxylamine/B6 as far as she can rememeber. She reports that she told the medical team that reglan did not work, but she was not given anything else when she was discharged yesterday. Since she was discharged home, she has not been able to keep down any food or drink. She would like a PICC line so that she can get IV medications at home as they are the only thing that have worked in the past. Past History - Past Medical History Allergies/Adverse Reactions: Allergies Allergy/AdvReac Type Severity Reaction Status Date / Time No Known Allergies Allergy Verified 03/05/18 16:12 Home Medications: Ambulatory Orders Metoclopramide HCl [Reglan] 10 mg PO ASDIR 03/05/18 Promethazine HCl [Phenergan Suppository -] 25 mg RC QID PRN #28 supp.rect Pyridoxine HCl (Vitamin B6) [B-Martín] 25 mg MM BID #30 lozenge.hd 03/05/18 Anemia: No Asthma: No Cancer: No Cardiac Disorders: No COPD: No CHF: No Diabetes: No GI Disorders: Yes (hyperemesis) Disorders: No HTN: No Liver Disease: No Seizures: No Thyroid Disease: No - Immunization History Immunization Up to Date: No - Suicide/Smoking/Psychosocial Hx Smoking History: Never smoked Have you smoked in the past 12 months: No If you are a former smoker, when did you quit?: over 4 yrs ago Information on smoking cessation initiated: No Hx Alcohol Use: No Drug/Substance Use Hx: No Substance Use Type: None Hx Substance Use Treatment: No Review of Systems - Review of Systems Comments:: General: No fevers, no chills, +weight loss, no malaise HEENT: No changes in vision, no changes in hearing, no congestion, no sore throat CV: No chest pain, no palpitations, no LE edema Pulm: No SOB, no cough, no wheezing GI: See HPI : No frequency, no urgency, no dysuria Musc: No back pain, no joint swelling, no recent injury Skin: No rash, no lesions, no erythema Endo: No excessive thirst, no heat/cold intolerance Heme: No unusual bruising or bleeding, no swollen glands Neuro: No syncope, no numbness/tingling, no focal weakness Vasc: No claudication Psych: No recent change in mood, no SI or HI *Physical Exam - Vital Signs Last Vital Signs Temp Pulse Resp BP Pulse Ox 99.4 F 70 18 125/62 100 03/05/18 16:09 03/05/18 16:09 03/05/18 16:09 03/05/18 16:09 03/05/18 16:09 - Physical Exam Comments: General: Uncomfortable, emesis basin with ~300cc saliva or clear fluid HEENT: PERRL, EOMI, MMM, voice normal, normal neck ROM. Cards: RRR Pulm: Comfortable on room air, clear to auscultation bilaterally Abd: Soft, nontender, nondistended Ext: Atraumatic. No LE edema. ROM intact. Strength 5/5 and equal bilaterally Vasc: Extremities WWP. Palpable radial and pedal pulses bilaterally Skin: Normal color, no rashes or lesions Neuro: A&Ox3, CN grossly intact, normal speech, motor/sensory grossly intact and symmetric Psych: Mood appropriate to situation ED Treatment Course - LABORATORY CBC & Chemistry Diagram: 03/05/18 16:26 03/05/18 16:26 - ADDITIONAL ORDERS Additional order review: Laboratory Results 03/05/18 16:34 Urine Color Yellow Urine Appearance Cloudy Urine pH 6.0 Ur Specific [place] 1.020 Urine Protein Negative Urine Glucose (UA) Negative Urine Ketones 2+ H Urine Blood Negative Urine Nitrite Negative Urine Bilirubin Negative Urine Urobilinogen 4.0 e.u/dl H Ur Leukocyte Esterase Negative 03/05/18 16:26 RBC 4.81 MCV 87.1 MCHC 33.0 RDW 13.4 MPV 9.3 Neutrophils % 74.9 Lymphocytes % 17.1 Monocytes % 6.5 Eosinophils % 0.6 Basophils % 0.9 Medical Decision Making - Medical Decision Making 03/05/18 17:19 Jailyn Villalpando is an otherwise healthy 33yo woman with recurrent hyperemesis during all of her pregnancies who presents with hyperemesis and inability to tolerate PO at home. - Reports that IV reglan has helped in the past. 10mg IV reglan and 1L normal saline bolus ordered - Spoke to Dr Sheridan via phone, will speak to IR to potentially set up PICC placement at home - If able to tolerate oral meds, will give a dose of doxylamine/B6 to assess if her symptoms improve. 03/05/18 18:51 - No improvement with reglan and NS - UA with ketones, will give 500cc of D5-0.45NS - No active vomiting, continued nausea with hyper-salivation. Recommendations for hyperemesis reviewed. Compazine, meclizine, and B6 ordered. Doxylamine is not available. - May need admission if symptoms do not improve. 03/05/18 20:12 - No improvement after additional medications - Discussed with Ms Villalpando that she will likely need to be admitted. She understands and agrees - Call placed to Dr Sheridan. 03/05/18 20:51 - Spoke to Dr Lowry, who was informed about Ms Villalpando by Dr Sheridan earlier this evening. As Ms Villalpando does not have any active vomiting, electrolyte abnormalities or dehydration, there is no indication for admission. Recommends promethazine suppository 25mg to be given here and prescribed at home. - Promethazine suppository ordered, refused by patient - Discussed use of suppository, B6, doxylamine with Ms Villalpando. Her believes that she has tried this previously without success. - Ms Villalpando requested IV benedryl as it has helped her sleep in the past. Ordered , but Ms Villalpando asked for her IV to be removed prior to receiving the medication. - Prescription for promethazine suppositories and B6 sent to pt's pharmacy. - Instructed to take small sips of water or other drinks every 10-15 minutes, and strongly recommended frequent small snacks eg single bites at a time. Instructed to call Dr Sheridan for follow up. - Ms Villalpando requests to leave at this time. Seen and discussed with Dr Muhammad. Melissa Tai PGY1 *DC/Admit/Observation/Transfer Diagnosis at time of Disposition: Hyperemesis gravidarum - Discharge Dispostion Disposition: HOME Condition at time of disposition: Stable Decision to Admit order: No - Prescriptions Prescriptions: Promethazine HCl [Phenergan Suppository -] 25 mg RC QID PRN #28 supp.rect PRN Reason: Nausea Pyridoxine HCl (Vitamin B6) [B-] 25 mg MM BID #30 lozenge.hd - Referrals Referrals: Misa Sheridan DO [Primary Care Provider] - - Patient Instructions Printed Discharge Instructions: DI for Hyperemesis Gravidarum Additional Instructions: Discharge Instructions: - You were seen in the ED for hyperemesis during your - You had blood tests showing that there were no abnormalities other than low blood sugar - You have been prescribed promethazine suppositories (anti-nausea) to take very 6 hours as needed. - You have also been prescribed vitamin B6. This should be taken every 12 hours to help treat and prevent nausea. It should be taken along with 12.5-25mg of doxylamine, also twice per day. This can be purchased over the counter in the allergy section of the pharmacy (brand name Unisom). This is 1/2 to 1 full tablet. These medications can be taken regardless of whether you are currently having nausea. - You may also continue to use the reglan previously prescribed. - Please follow up with your OB/gyne physician, Dr Sheridan, within the next 1-2 days - Try to take a sip of water (or any other drink) every 10-15 minutes. You only need to take small sips to stay hydrated. You should also try to eat frequent, small meals, even if you are only able to take one bite several times per hour. Try to eat [id number]-qq-[id number] foods such as crackers, rice, or bananas. - Seek medical care if you have intractable vomiting or complete inability to take any food/drink by mouth. - Post Discharge Activity
--- NOTE | 2018-03-05 18:02 | PDOC ---
Attending Attestation - Resident Resident Name: Melissa Tai - ED Attending Attestation I have performed the following: I have examined & evaluated the patient, The case was reviewed & discussed with the resident, I agree w/resident's findings & plan, Exceptions are as noted - HPI HPI: 03/05/18 18:16 33-year-old female presents with hyperemesis gravidarum. She's been here several times this month so far for the same complaint. She is 7 para 1. - Physicial Exam PE: 03/05/18 18:16 slender 33 yo female p/w vomiting and head ncat dry mucus membranes neck supple lungs cta b/l cvs [id number] abd no rebound.,no guarding ext no e/c/c skin warm and dry no flank pain neuro axox3,no ataxia,moving all extremities 03/05/18 18:19 - Medical Decision Making 03/05/18 18:[address] Sheridan and discussed the option of PICC line placement as outpt, however Dr Carrington felt that it would be beneficial to try permethazine suppositories and so a RX was sent to her pharmacy 03/05/18 20:15 this pt hs had persisitent vomiting during her first trimester and this is her 3rd visit being here on 02/25,03/02 and today 03/05/18 20:34 imp hyperemesis gravidarum plan f/u with Dr Sheridan
[2018-03-05] MEDS ORDERED: DEXTROSE 5%-0.45% SALINE 1,000 ML IV SCH (18:15)
[2018-03-05] MEDS ORDERED: PROCHLORPERAZINE INJECTION 10 MG/2 ML VIAL IVPB ONE (18:29)
[2018-03-05] MEDS ORDERED: DEXTROSE 5%-WATER - 500 ML IV ONE (18:30)
[2018-03-05] MEDS ORDERED: PYRIDOXINE HCL (B-6) 50 MG TABLET (FP) PO ONE (18:45)
[2018-03-05] MEDS ORDERED: MECLIZINE HCL 25 MG TABLET (FP) PO ONE (18:48)
[2018-03-05] MEDS ORDERED: PROCHLORPERAZINE INJECTION 10 MG/2 ML VIAL ONE (19:36)
[2018-03-05] MEDS ORDERED: MECLIZINE HCL 25 MG TABLET (FP) ONE (19:36)
[2018-03-05] MEDS ORDERED: PROMETHAZINE HCL 25 MG SUPPOSITORY PR ONE (20:32)
== END 2018-03-05 21:07 | disposition home or self-care (01) ==
LOC: JER 15:38
PROC: 3E0337Z Introduction of Electrolytic and Water Balance Substance into Peripheral Vein, Percutaneous Approach (ICD-10-PCS; principal; 2018-03-05)
PROC: 3E033GC Introduction of Other Therapeutic Substance into Peripheral Vein, Percutaneous Approach (ICD-10-PCS; 2018-03-05)
PROC: 3E033GC Introduction of Other Therapeutic Substance into Peripheral Vein, Percutaneous Approach (ICD-10-PCS; 2018-03-05)
DX: O26.891 Other specified pregnancy related conditions, first trimester (principal); O21.0 Mild hyperemesis gravidarum; Z3A.08 8 weeks gestation of pregnancy
CPT/HCPCS: 36415; 80053; 81003; 83690; 83735; 85025; 87086; 99283-25

== ENCOUNTER 2018-03-13 23:49 | Inpatient (IN) | payer BC ==
[2018-03-14 00:01] VITALS: BMI 27.6
[2018-03-14] MEDS ORDERED: SODIUM CHLORIDE 1,000 ML IV STA (00:16)
[2018-03-14] MEDS ORDERED: ONDANSETRON 4 MG/2 ML VIAL IVPUSH ONE ×2 (00:16→04:03)
[2018-03-14] MEDS ORDERED: FOLIC ACID INJECTION - 1 MG, THIAMINE HCL 100 MG, MULTIVIT INJECTION ADULT 10 ML in SOD... IVPB ONE (00:17)
--- NOTE | 2018-03-14 00:18 | PDOC ---
History of Present Illness - General History Source: Patient, Spouse - History of Present Illness Initial Comments: This patient is a 33 year old female woman currently 9 weeks and presents with hyperemesis. Patient was here 1 week ago for the same issue and from previous records it is noted that she suffers from persistent nausea and vomiting during . Her states that she was just released from [facility] at 1:00pm today. She is currently complaining of abdominal pain along with constant nausea and vomiting. 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 Sheridan All: NKDA <Marii Marquez - Last Filed: 03/14/18 00:38> <Sissy Jones - Last Filed: 03/15/18 00:00> - General Chief Complaint: Nausea/Vomiting Stated Complaint: WEAKNESS/9 WKS Time Seen by Provider: 03/14/18 00:13 Past History <Marii Marquez - Last Filed: 03/14/18 00:38> - Past Medical History Anemia: No Asthma: No Cancer: No Cardiac Disorders: No COPD: No CHF: No Diabetes: No GI Disorders: Yes (hyperemesis) Disorders: No HTN: No Liver Disease: No Seizures: No Thyroid Disease: No - Immunization History Immunization Up to Date: No - Suicide/Smoking/Psychosocial Hx Smoking History: Never smoked Have you smoked in the past 12 months: No If you are a former smoker, when did you quit?: over 4 yrs ago Information on smoking cessation initiated: No Hx Alcohol Use: No Drug/Substance Use Hx: No Substance Use Type: None Hx Substance Use Treatment: No <Sissy Jones - Last Filed: 03/15/18 00:00> - Past Medical History Allergies/Adverse Reactions: Allergies Allergy/AdvReac Type Severity Reaction Status Date / Time No Known Allergies Allergy Verified 03/14/18 00:00 Home Medications: Ambulatory Orders Metoclopramide HCl [Reglan] 10 mg PO ASDIR 03/05/18 Promethazine HCl [Phenergan Suppository -] 25 mg RC QID PRN #28 supp.rect Pyridoxine HCl (Vitamin B6) [B-] 25 mg MM BID #30 lozenge.hd 03/05/18 Ondansetron [Ondansetron Odt] 8 mg PO BID PRN #30 tab.rapdis 03/14/18 Review of Systems - Review of Systems Comments:: GENERAL/CONSTITUTIONAL: No fever or chills. No weakness. HEAD, EYES, EARS, NOSE AND THROAT: No change in vision. No ear pain or discharge. No sore throat. CARDIOVASCULAR: No chest pain or shortness of breath. RESPIRATORY: No cough, wheezing, or hemoptysis. GASTROINTESTINAL: +epigastric pain +nausea, +vomiting, no diarrhea or constipation. GENITOURINARY: No dysuria, frequency, or change in urination. MUSCULOSKELETAL: No joint or muscle swelling or pain. No neck or back pain. SKIN: No rash NEUROLOGIC: No headache, vertigo, loss of consciousness, or change in strength/ sensation. ENDOCRINE: No increased thirst. No abnormal weight change. HEMATOLOGIC/LYMPHATIC: No anemia, easy bleeding, or history of blood clots. ALLERGIC/IMMUNOLOGIC: No hives or skin allergy. 03/14/18 00:34 <Marii Marquez - Last Filed: 03/14/18 00:38> *Physical Exam - Vital Signs Last Vital Signs Temp Pulse Resp BP Pulse Ox 98.9 F 100 H 18 129/92 99 03/14/18 00:00 03/14/18 00:00 03/14/18 00:00 03/14/18 00:00 03/14/18 00:00 <Marii Marquez - Last Filed: 03/14/18 00:38> - Vital Signs Last Vital Signs Temp Pulse Resp BP Pulse Ox 98.9 F 100 H 18 129/92 99 03/14/18 00:00 03/14/18 00:00 03/14/18 00:00 03/14/18 00:00 03/14/18 00:00 - Physical Exam Comments: GENERAL: Awake, alert, and fully oriented. Tearful. Actively vomiting. HEAD: No signs of trauma EYES: PERRLA, EOMI, sclera anicteric, conjunctiva clear ENT: Auricles normal inspection, hearing grossly normal, nares patent, oropharynx clear without exudates. Dry mucosa NECK: Normal ROM, supple, no lymphadenopathy, JVD, or masses LUNGS: Breath sounds equal, clear to auscultation bilaterally. No wheezes, and no crackles HEART: Regular rate and rhythm, normal S1 and S2, no murmurs, rubs or gallops ABDOMEN: Soft, +LUQ tenderness, hyperactive bowel sounds. No guarding, no rebound. No masses EXTREMITIES: Normal range of motion, no edema. No clubbing or cyanosis. No cords, erythema, or tenderness NEUROLOGICAL: Cranial nerves II through XII grossly intact. Normal speech, normal gait. Motor and sensation intact. SKIN: Warm, Dry, normal turgor, no rashes or lesions noted. <Sissy Jones - Last Filed: 03/15/18 00:00> ED Treatment Course - LABORATORY CBC & Chemistry Diagram: 03/14/18 00:25 03/14/18 00:25 <Marii Marquez - Last Filed: 03/14/18 00:38> - LABORATORY CBC & Chemistry Diagram: 03/14/18:25 03/14/18 00:25 <Sissy Jones - Last Filed: 03/15/18 00:00> Medical Decision Making - Medical Decision Making 03/14/18 02:01 Pt presents with hyperemesis, just discharged from [facility] a few hours prior to arrival in ED here. Now with multiple episodes of vomiting and unable to tolerate PO. She states she is not seeing Dr. 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 She improved with IV NSS, banana bag, and zofran. Sleeping comfortably. Awaiting results of ultrasound, then reassess. If unable to tolerate PO, may require admission. <Sissy Jones - Last Filed: 03/15/18 00:00> *DC/Admit/Observation/Transfer - Attestations Scribe Attestion: 03/14/18 00:35 Documentation prepared by Marii Marquez, acting as emergency medicine medical director for Sissy Jones MD. <Marii Marquez - Last Filed: 03/14/18 00:38> <Sissy Jones - Last Filed: 03/15/18 00:00> Diagnosis at time of Disposition: Hyperemesis gravidarum
[2018-03-14] MEDS ORDERED: ONDANSETRON 4 MG/2 ML VIAL ONE ×2 (00:30→04:22)
[2018-03-14 00:46] LABS: BASO % 0.4 % (0-2.0); EOS % 0.2 % (0-4.5); HEMATOCRIT 43.5 % (32.4-45.2); HEMOGLOBIN 15.2 GM/dL (10.7-15.3); LYMPH % 8.2 % (8-40); MEAN CELL VOLUME 85.8 fl (80-96); MONO % 5.7 % (3.8-10.2); NEUT % 85.5 % (42.8-82.8); PLATELET COUNT 251 K/MM3 (134-434); RBC 5.06 M/mm3 (3.60-5.2); RDW 13.5 % (11.6-15.6); WHITE BLOOD COUNT 17.9 K/mm3 (4.0-10.0)
[2018-03-14 01:22] LABS: ALBUMIN 3.9 g/dl (3.4-5.0); ALK PHOS 128 U/L (45-117); ANION GAP 11 MMOL/L (8-16); BLOOD UREA NITROGEN 9 mg/dL (7-18); CALCIUM 9.5 mg/dL (8.5-10.1); CHLORIDE 100 mmol/L (98-107); CO2 24 mmol/L (21-32); CREATININE 0.7 mg/dL (0.55-1.3); GLUCOSE,RANDOM 105 mg/dL (74-106); LIPASE 443 U/L (73-393); POTASSIUM 4.3 mmol/L (3.5-5.1); SGOT/AST 48 U/L (15-37); SGPT/ALT 87 U/L (13-61); SODIUM 134 mmol/L (136-145); TOT PROT 8.8 g/dl (6.4-8.2)
[2018-03-14 03:05] LABS: URINE APPEARANCE SLCLOUDY; URINE BILIRUBIN NEGATIVE (<2.0 mg/dL); URINE COLOR AMBER; URINE GLUCOSE (UA) NEGATIVE (NEGATIVE); URINE KETONE 2+ (NEGATIVE); URINE LEUK ESTERASE NEGATIVE (NEGATIVE); URINE NITRITE NEGATIVE (NEGATIVE); URINE PROTEIN 1+ (NEGATIVE); URINE UROBILINOGEN 4.0 E.U/dl mg/dL (0.2-1.0)
[2018-03-14 03:09] LABS: EPI CELLS FEW /HPF (FEW); URINE BACTERIA RARE /hpf (NONE SEEN); URINE MUCUS MODERATE
[2018-03-14 03:50] LABS: COCAINE, UR NEGATIVE ng/ml (CUTOFF=300); METHADONE, UR NEGATIVE ng/ml (CUTOFF=300); OPIATES, URI NEGATIVE ng/ml (CUTOFF=300); PHENCYCLIDINE,URINE NEGATIVE ng/ml (CUTOFF=25); URINE AMPHETAMINES NEGATIVE ng/ml (CUTOFF=500); URINE BARBITURATES NEGATIVE ng/ml (CUTOFF=200); URINE BENZODIAZEPINES NEGATIVE ng/ml (CUTOFF=200)
--- NOTE | 2018-03-14 04:14 | PDOC ---
*Physical Exam - Vital Signs Last Vital Signs Temp Pulse Resp BP Pulse Ox 98.9 F 100 H 18 129/92 99 03/14/18 00:00 03/14/18 00:00 03/14/18 00:00 03/14/18 00:00 03/14/18 00:00 ED Treatment Course - LABORATORY CBC & Chemistry Diagram: 03/17/18 14:30 03/20/18 07:10 - ADDITIONAL ORDERS Additional order review: Laboratory Results 03/14/18 03/14/18 03/14/18 02:50 02:50 01:00 Sodium Potassium Chloride Carbon Dioxide Anion Gap BUN Creatinine Creat Clearance w eGFR Random Glucose Calcium Total Bilirubin AST ALT Alkaline Phosphatase Total Protein Albumin Lipase Beta HCG, Quant Urine Color Laura Urine Appearance Slcloudy Urine pH 5.0 Ur Specific [place] 1.024 Urine Protein 1+ H Urine Glucose (UA) Negative Urine Ketones 2+ H Urine Blood Negative Urine Nitrite Negative Urine Bilirubin Negative Urine Urobilinogen 4.0 e.u/dl H Ur Leukocyte Esterase Negative Urine WBC (Auto) 3 Urine RBC (Auto) 1 Ur Epithelial Cells Few Urine Bacteria Rare Urine Mucus Moderate Opiates Screen Negative Methadone Screen Negative Barbiturate Screen Negative Phencyclidine Screen Negative Ur Amphetamines Screen Negative MDMA (Ecstasy) Screen Negative Benzodiazepines Screen Negative Cocaine Screen Negative U Marijuana (THC) Screen Positive A* Blood Type O POSITIVE Antibody Screen Negative 03/14/18 00:25 Sodium 134 L Potassium 4.3 Chloride 100 Carbon Dioxide 24 Anion Gap 11 BUN 9 Creatinine 0.7 Creat Clearance w eGFR > 60 Random Glucose 105 Calcium 9.5 Total Bilirubin 1.0 AST 48 H ALT 87 H Alkaline Phosphatase 128 H Total Protein 8.8 H Albumin 3.9 Lipase 443 H Beta HCG, Quant 650669.7 Urine Color Urine Appearance Urine pH Ur Specific [place] Urine Protein Urine Glucose (UA) Urine Ketones Urine Blood Urine Nitrite Urine Bilirubin Urine Urobilinogen Ur Leukocyte Esterase Urine WBC (Auto) Urine RBC (Auto) Ur Epithelial Cells Urine Bacteria Urine Mucus Opiates Screen Methadone Screen Barbiturate Screen Phencyclidine Screen Ur Amphetamines Screen MDMA (Ecstasy) Screen Benzodiazepines Screen Cocaine Screen U Marijuana (THC) Screen Blood Type Antibody Screen 03/14/18 00:25 RBC 5.06 MCV 85.8 MCHC 35.0 RDW 13.5 MPV 10.0 Neutrophils % 85.5 H Lymphocytes % 8.2 D Monocytes % 5.7 Eosinophils % 0.2 Basophils % 0.4 - Medications Given in the ED: ED Medications Discontinued Medications Generic Name Dose Route Start Last Admin Trade Name Paula PRN Reason Stop Dose Admin Sodium Chloride 1,000 mls @ 1,000 mls/hr 03/14/18 00:16 03/14/18 00:45 Normal Saline - IV 03/14/18 01:15 1,000 mls/hr ASDIR STA Administration Ondansetron HCl 4 mg 03/14/18 00:16 03/14/18 00:45 Zofran Injection IVPUSH 03/14/18 00:17 4 mg ONCE ONE Administration Medical Decision Making - Medical Decision Making 03/14/18 04:12 Patient with ketones in urine, will start D5 1/2 NS Still not tolerating po after 4mg zofran, will give additional 4mg zofran and reassess If still nauseous/vomiting will give reglan and/or phenergan Spoke with Dr. Nunez at 3:50am, will follow up after antiemetics 03/14/18 05:32 Still nauseous and not tolerating PO after zofran x2, trial reglan 10mg, reassess 03/14/18 06:11 Still nauseous and not tolerating PO after reglan, trial phenergan reassess 03/20/18 22:19 Still nauseous and not tolerating PO after phenergan, admit *DC/Admit/Observation/Transfer Diagnosis at time of Disposition: Hyperemesis gravidarum - Discharge Dispostion Disposition: HOME Condition at time of disposition: Fair - Prescriptions - Referrals - Patient Instructions - Post Discharge Activity
[2018-03-14] MEDS: DEXTROSE 5%-0.45% SALINE 1,000 ML IV SCH ×3 (04:29→20:00)
[2018-03-14] MEDS ORDERED: METOCLOPRAMIDE HCL INJECTION 10 MG/2 ML VIAL ONE (05:22)
[2018-03-14] MEDS ORDERED: METOCLOPRAMIDE HCL INJECTION 10 MG/2 ML VIAL IVPUSH ONE (05:30)
[2018-03-14] MEDS ORDERED: PROMETHAZINE HCL 25 MG/1 ML VIAL IVPUSH ONE (06:12)
[2018-03-14] MEDS ORDERED: PROMETHAZINE HCL 25 MG/1 ML VIAL ONE (06:19)
[2018-03-14] MEDS ORDERED: ONDANSETRON 4 MG/2 ML VIAL IVPUSH PRN (08:42)
[2018-03-14] MEDS ORDERED: PROMETHAZINE HCL 25 MG/1 ML VIAL IVPB PRN (08:43)
[2018-03-14] MEDS ORDERED: ACETAMINOPHEN 325 MG TABLET (FP) PO PRN (08:45)
--- NOTE | 2018-03-14 08:55 | HP ---
Admitting History and Physical - Admission History of Present Illness: 33yo @ 9.4wks by pipo here with persistent N/V. Pt [facility] care of [facility]- admitted for N/V and discharged home 03/07. Was sent discharge letter by that practice. Still with nausea and vomiting throughout the day. States she vomits "23" times a day, although much of that is really excessive salvation. Home meds of Zofran , Phenergan NE, and Reglan were not controlling her symptoms, but there may not have been full compliance with this. In the ED given Zofran 4mg IV x 2, Phenergan and Reglan and was unable to tolerate any liquids or crackers. Still feels weak. No VB/LOF. No cramping. 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: Alzheimer's, CVA, Dementia, Migraine, Multiple Sclerosis, Peripheral Neuropathy, Parkinson's, Seizure, Syncope, TIA, Vertigo, Other Gastrointestinal: Yes: Other (hyperemesis gravidarum) - Smoking History Smoking history: Never smoked Have you smoked in the past 12 months: No If you are a former smoker, when did you quit?: over 4 yrs ago - Alcohol/Substance Use Hx Alcohol Use: No History of Substance Use: reports: None Home Medications - Allergies Allergies/Adverse Reactions: Allergies Allergy/AdvReac Type Severity Reaction Status Date / Time No Known Allergies Allergy Verified 03/14/18 00:00 - Home Medications Home Medications: Ambulatory Orders Metoclopramide HCl [Reglan] 10 mg PO ASDIR 03/05/18 Promethazine HCl [Phenergan Suppository -] 25 mg RC QID PRN #28 supp.rect Pyridoxine HCl (Vitamin B6) [B-] 25 mg MM BID #30 lozenge.hd 03/05/18 Ondansetron [Ondansetron Odt] 8 mg PO BID PRN #30 tab.rapdis 03/14/18 Review of Systems - Review of Systems Constitutional: reports: Lethargy, Loss of Appetite Gastrointestinal: reports: Nausea, Vomiting Physical Examination Vital Signs: Vital Signs Temperature 98.9 F 03/14/18 00:00 Pulse Rate 78 03/14/18 06:46 Respiratory Rate 18 03/14/18 06:46 Blood Pressure 97/55 L 03/14/18 06:46 O2 Sat by Pulse Oximetry (%) 98 03/14/18 06:46 Constitutional: Yes: Calm Eyes: Yes: WNL HENT: Yes: WNL Cardiovascular: Yes: WNL Respiratory: Yes: WNL Gastrointestinal: Yes: Normal Bowel Sounds Edema: No Labs: CBC, BMP 03/14/18 00:25 03/14/18 00:25 Problem List - Problems (1) Hyperemesis gravidarum Code(s): O21.0 - MILD HYPEREMESIS GRAVIDARUM Assessment/Plan 33yo @ 9wks with N/V of -Will admit/observe -IV antiemetics ATC today, then advance diet slowly tomorrow and possible transition to po meds -Consider SW consult for possible home health aide if pt unable or unwilling to transition to po meds -D5 LR -Daily BMP Asmita Nunez MD
[2018-03-14] MEDS: FAMOTIDINE 20 MG/50 ML IVPB 20 MG/50 ML MG IVPB SCH (10:21)
[2018-03-14 22:04] LABS: URINE APPEARANCE SLCLOUDY; URINE BILIRUBIN NEGATIVE (<2.0 mg/dL); URINE COLOR AMBER; URINE GLUCOSE (UA) 2+ (NEGATIVE); URINE KETONE 1+ (NEGATIVE); URINE LEUK ESTERASE NEGATIVE (NEGATIVE); URINE NITRITE NEGATIVE (NEGATIVE); URINE PROTEIN NEGATIVE (NEGATIVE); URINE UROBILINOGEN 4.0 E.U/dl mg/dL (0.2-1.0)
[2018-03-15] MEDS: FAMOTIDINE 20 MG/50 ML IVPB 20 MG/50 ML MG IVPB SCH (09:24)
[2018-03-15] MEDS ORDERED: MULTIVIT INJ. ADULT COMBO WITH VIT K 1 COMBO 10 ML VIAL IV SCH (10:00)
--- NOTE | 2018-03-15 10:04 | PN ---
Progress Note (short form) - Note Progress Note: 33 yo @ 9 weeks gestation, admitted for Nausea and Vomiting, seen and evaluated. She's sleeping in bed.She has not been able to tolerate regular diet. PE : Chest : CTA, no rales ABD : soft, NT Perineum : No bleeding ASS / Plan : Hyperemesis gravidarum IV multivitamin Zofran Continue NPO
[2018-03-15 10:06] LABS: ANION GAP 10 MMOL/L (8-16); BLOOD UREA NITROGEN 7 mg/dL (7-18); CALCIUM 7.9 mg/dL (8.5-10.1); CHLORIDE 101 mmol/L (98-107); CO2 24 mmol/L (21-32); CREATININE 0.6 mg/dL (0.55-1.3); GLUCOSE,RANDOM 91 mg/dL (74-106); POTASSIUM 3.5 mmol/L (3.5-5.1); SODIUM 136 mmol/L (136-145)
[2018-03-15] MEDS: MULTIVIT INJ. ADULT COMBO WITH VIT K 1 COMBO 10 ML VIAL IV SCH (12:24)
[2018-03-15] MEDS: DEXTROSE 5%-0.45% SALINE 1,000 ML IV SCH ×2 (12:24→23:58)
[2018-03-15] MEDS: ONDANSETRON 4 MG/2 ML VIAL IVPB PRN ×2 (13:34→20:38)
--- NOTE | 2018-03-16 07:40 | PN ---
Progress Note (short form) - Note Progress Note: 33 yo @ 9 weeks gestation, admitted for Nausea and Vomiting, seen and evaluated. She's lying in bed. She has not been able to tolerate regular diet. She continues to c/o nausea. PE : Chest : CTA, no rales ABD : soft, NT Perineum : No bleeding ASS / Plan : Hyperemesis gravidarum Continue IV multivitamin Continue Zofran Continue NPO
[2018-03-16] MEDS: FAMOTIDINE 20 MG/50 ML IVPB 20 MG/50 ML MG IVPB SCH (10:05)
[2018-03-16] MEDS: MULTIVIT INJ. ADULT COMBO WITH VIT K 1 COMBO 10 ML VIAL IV SCH (10:21)
[2018-03-16] MEDS: DEXTROSE 5%-0.45% SALINE 1,000 ML IV SCH ×2 (10:22→21:44)
[2018-03-16] MEDS: METOCLOPRAMIDE HCL INJECTION 10 MG/2 ML VIAL IVPUSH PRN (11:51)
[2018-03-16] MEDS: ONDANSETRON 4 MG/2 ML VIAL IVPB PRN ×2 (16:15→21:43)
[2018-03-17] MEDS: METOCLOPRAMIDE HCL INJECTION 10 MG/2 ML VIAL IVPUSH PRN (07:30)
[2018-03-17] MEDS: FAMOTIDINE 20 MG/50 ML IVPB 20 MG/50 ML MG IVPB SCH (09:36)
[2018-03-17] MEDS: MULTIVIT INJ. ADULT COMBO WITH VIT K 1 COMBO 10 ML VIAL IV SCH (10:00)
[2018-03-17] MEDS: DEXTROSE 5%-0.45% SALINE 1,000 ML IV SCH (10:00)
--- NOTE | 2018-03-17 14:10 | PN ---
Progress Note (short form) - Note Progress Note: 33 yo @ 9 weeks gestation, admitted for Nausea and Vomiting, seen and evaluated. She's lying comfortably in bed. She has not been able to tolerate regular diet. She's been experiencing hypersalivation. No vomiting noted today. PE : Chest : CTA, no rales ABD : soft, NT Perineum : No bleeding ASS / Plan : Hypersalivation Continue IV multivitamin Continue Zofran Full liquid diet for dinner Regular diet in am F/U Labs Consider D/C home in am
[2018-03-17 15:21] LABS: HEMATOCRIT 34.6 % (32.4-45.2); HEMOGLOBIN 12.3 GM/dL (10.7-15.3); MCH 30.3 pg (25.7-33.7); MCHC 35.7 g/dl (32.0-36.0); MEAN CELL VOLUME 84.8 fl (80-96); PLATELET COUNT 209 K/MM3 (134-434); RBC 4.08 M/mm3 (3.60-5.2); RDW 13.3 % (11.6-15.6); WHITE BLOOD COUNT 8.9 K/mm3 (4.0-10.0)
[2018-03-17 15:54] LABS: ALK PHOS 98 U/L (45-117); ANION GAP 10 MMOL/L (8-16); BLOOD UREA NITROGEN 5 mg/dL (7-18); CALCIUM 8.2 mg/dL (8.5-10.1); CHLORIDE 102 mmol/L (98-107); CO2 24 mmol/L (21-32); CREATININE 0.5 mg/dL (0.55-1.3); GLUCOSE,RANDOM 78 mg/dL (74-106); POTASSIUM 3.1 mmol/L (3.5-5.1); SGOT/AST 41 U/L (15-37); SGPT/ALT 88 U/L (13-61); SODIUM 135 mmol/L (136-145); TOT PROT 6.3 g/dl (6.4-8.2)
[2018-03-17] MEDS: ONDANSETRON 4 MG/2 ML VIAL IVPB PRN (16:00)
[2018-03-18] MEDS: ONDANSETRON 4 MG/2 ML VIAL IVPB PRN (06:06)
[2018-03-18] MEDS: DEXTROSE 5%-0.45% SALINE 1,000 ML IV SCH (06:13)
--- NOTE | 2018-03-18 07:24 | PN ---
Progress Note (short form) - Note Progress Note: 33 yo @ 9 weeks gestation, admitted for Nausea and Vomiting, seen and evaluated. She's lying comfortably in bed. She's been experiencing hypersalivation. No vomiting noted today. PE : Chest : CTA, no rales ABD : soft, NT Perineum : No bleeding ASS / Plan : Hypersalivation Continue IV multivitamin Continue Zofran Regular diet F/U TSH panel KCL Consider calling hospitalist
[2018-03-18] MEDS: FAMOTIDINE 20 MG/50 ML IVPB 20 MG/50 ML MG IVPB SCH (09:41)
[2018-03-18] MEDS ORDERED: ONDANSETRON HCL 4 MG/5 ML PO PRN (10:24)
[2018-03-18] MEDS: D5-1/2NS+40 MEQ KCL - 40 MEQ/1,000 ML INFUS.BAG IV SCH (10:36)
[2018-03-18] MEDS: MULTIVIT INJ. ADULT COMBO WITH VIT K 1 COMBO 10 ML VIAL IV SCH (10:37)
--- NOTE | 2018-03-18 12:24 | PN ---
Progress Note, Physician Chief Complaint: Nausea/Vomiting History of Present Illness: 33yo @ 10.1wks here for HEG Nausea and vomiting overnight-but was able to tolerate a small amount of ontiveros that her brought. No VB/cramping. - Current Medication List Current Medications: Active Medications Acetaminophen (Tylenol -) 650 mg PO Q4H PRN PRN Reason: PAIN LEVEL 6-10 Diphenhydramine HCl (Benadryl Injection -) 25 mg IVPUSH HS PRN PRN Reason: INSOMNIA Last Admin: 03/17/18 20:22 Dose: 25 mg Famotidine/Sodium Chloride (Pepcid 20 Mg Premixed Ivpb -) 20 mg in 50 mls @ 100 mls/hr IVPB DAILY MARI Last Admin: 03/18/18 09:41 Dose: 100 mls/hr Dextrose/Sodium Chloride (D5-1/2ns+40 Meq Kcl -) 40 meq in 1,000 mls @ 125 mls/ hr IV ASDIR MARI Last Admin: 03/18/18 10:36 Dose: 125 mls/hr Metoclopramide HCl (Reglan Injection -) 10 mg IVPUSH Q6H PRN PRN Reason: NAUSEA AND/OR VOMITING Last Admin: 03/17/18 07:30 Dose: 10 mg Metoclopramide HCl (Reglan -) 10 mg PO TIDAC [facility] Multivitamins/Minerals (Infuvite Adult -) 10 ml IV DAILY MARI Last Admin: 03/18/18 10:37 Dose: 10 ml Ondansetron HCl (Zofran Injection) 8 mg IVPB Q6H PRN PRN Reason: NAUSEA Last Admin: 03/18/18 06:06 Dose: 8 mg Ondansetron HCl (Zofran Oral Solution -) 4 mg PO Q6H PRN PRN Reason: NAUSEA AND/OR VOMITING Promethazine HCl (Phenergan Injection -) 25 mg IVPB Q6H PRN PRN Reason: NAUSEA AND/OR VOMITING Last Admin: 03/14/18 20:50 Dose: 25 mg - Objective Vital Signs: Vital Signs Temperature 98.5 F 03/18/18 09:00 Pulse Rate 72 03/18/18 09:00 Respiratory Rate 20 03/18/18 09:00 Blood Pressure 102/60 03/18/18 09:00 O2 Sat by Pulse Oximetry (%) 98 03/16/18 08:30 Constitutional: Yes: Well Nourished Eyes: Yes: WNL HENT: Yes: WNL Psychiatric: Yes: WNL Labs: CBC, BMP 03/17/18 14:30 03/17/18 14:30 Problem List - Problems (1) Hyperemesis gravidarum Code(s): O21.0 - MILD HYPEREMESIS GRAVIDARUM Assessment/Plan 33yo @ 10.1wks by 9.4wk pipo here with Hyperemesis Now Hospital Day #4 Continue IVF, MVIs Discussed transitioning to PO/MS meds now- including Zofran, Reglan and Phenergan MS. Avoidance of THC discussed Stressed importance and need to establish outpatient care and then further home health nursing can be arranged if needed Repleting potassium today TFTs reviewed, TSH low but normal T4- should be rechecked after the first trimester Possible d/c to home tomorrow with po meds and close follow up in the clinic. Billie Nunez MD
[2018-03-18] MEDS ORDERED: ONDANSETRON *ODT* 4 MG TABLET SL PRN (12:26)
[2018-03-18] MEDS ORDERED: PROMETHAZINE HCL 12.5 MG SUPPOSITORY PR PRN (12:26)
[2018-03-18] MEDS: METOCLOPRAMIDE HCL 10 MG TABLET (FP) PO SCH ×2 (13:52→17:09)
[2018-03-19] MEDS: D5-1/2NS+40 MEQ KCL - 40 MEQ/1,000 ML INFUS.BAG IV SCH ×2 (07:46→16:00)
[2018-03-19] MEDS: ONDANSETRON 4 MG/2 ML VIAL IVPB PRN ×2 (07:46→20:50)
[2018-03-19 08:05] LABS: ANION GAP 11 MMOL/L (8-16); BLOOD UREA NITROGEN 7 mg/dL (7-18); CALCIUM 8.6 mg/dL (8.5-10.1); CHLORIDE 103 mmol/L (98-107); CO2 23 mmol/L (21-32); CREATININE 0.5 mg/dL (0.55-1.3); GLUCOSE,RANDOM 71 mg/dL (74-106); POTASSIUM 3.3 mmol/L (3.5-5.1); SODIUM 137 mmol/L (136-145)
--- NOTE | 2018-03-19 08:22 | DS ---
Physical Examination Vital Signs: Vital Signs Temperature 98.9 F 03/18/18 22:00 Pulse Rate 69 03/18/18 22:00 Respiratory Rate 20 03/18/18 22:00 Blood Pressure 109/70 03/18/18 22:00 O2 Sat by Pulse Oximetry (%) 98 03/16/18 08:30 Constitutional: Yes: Calm Eyes: Yes: Conjunctiva Clear HENT: Yes: Atraumatic Neck: Yes: Supple Cardiovascular: Yes: Regular Rate and Rhythm Respiratory: Yes: Regular Gastrointestinal: Yes: Soft Breast(s): Yes: WNL Musculoskeletal: Yes: WNL Extremities: Yes: WNL Neurological: Yes: Alert, Oriented ...Motor Strength: WNL Psychiatric: Yes: Alert, Oriented Labs: CBC, BMP 03/17/18 14:30 03/19/18 06:30 Discharge Summary Reason For Visit: HYPEREMESIS GRAVIDIDARUN Current Active Problems Hyperemesis gravidarum (Acute) Procedures: Principal: Medical management of nausea, vomiting and hypersalivation Hospital Course: Upon admission patient was placed on antiemetic and IV multivitamin. Electrolytes were corrected. In the end she was able to tolerate regular diet. Condition: Fair - Instructions Diet, Activity, Other Instructions: Frequent small amount meals Avoid THC F/U for care as out patient Disposition: HOME - Home Medications Comprehensive Discharge Medication List: Ambulatory Orders Metoclopramide HCl [Reglan] 10 mg PO ASDIR 03/05/18 Promethazine HCl [Phenergan Suppository -] 25 mg RC QID PRN #28 supp.rect Pyridoxine HCl (Vitamin B6) [B-Martín] 25 mg MM BID #30 lozenge.hd 03/05/18 Ondansetron [Ondansetron Odt] 8 mg PO BID PRN #30 tab.rapdis 03/14/18
[2018-03-19] MEDS: METOCLOPRAMIDE HCL 10 MG TABLET (FP) PO SCH ×3 (08:34→17:06)
[2018-03-19] MEDS: MULTIVIT INJ. ADULT COMBO WITH VIT K 1 COMBO 10 ML VIAL IV SCH (09:02)
[2018-03-19] MEDS: RANITIDINE HCL 150 MG TABLET (FP) PO SCH ×2 (09:02→21:01)
[2018-03-20] MEDS: METOCLOPRAMIDE HCL 10 MG TABLET (FP) PO SCH ×2 (07:30→11:45)
[2018-03-20 08:36] VITALS: BP 103/63; PULSE 62; TEMP 98
[2018-03-20 09:30] LABS: ANION GAP 9 MMOL/L (8-16); BLOOD UREA NITROGEN 5 mg/dL (7-18); CALCIUM 8.2 mg/dL (8.5-10.1); CHLORIDE 103 mmol/L (98-107); CO2 20 mmol/L (21-32); CREATININE 0.5 mg/dL (0.55-1.3); GLUCOSE,RANDOM 86 mg/dL (74-106); POTASSIUM 4.1 mmol/L (3.5-5.1); SODIUM 133 mmol/L (136-145)
[2018-03-20] MEDS: MULTIVIT INJ. ADULT COMBO WITH VIT K 1 COMBO 10 ML VIAL IV SCH (09:45)
[2018-03-20] MEDS: RANITIDINE HCL 150 MG TABLET (FP) PO SCH (09:46)
--- NOTE | 2018-03-20 10:16 | PN ---
Progress Note (short form) - Note Progress Note: 10 weeks gestation s/p hyperemesis , electrolyte imbalance , dehydration corrected by iv fluids , K replacement , iv zofran, iv reglan pt has not vomited since last night she is spitting mostly she feels better iv is infiltrated in left hand , hand is swollen she can tolerate po small amount of food , sips of fluids no bleeding pt a[pears cheerful she declines any mental or social issues Selected Entries 03/20/18 08:33 Temperature 98 F Pulse Rate 62 Blood Pressure 103/63 Laboratory Tests 03/17/18 03/20/18 14:30 07:10 WBC 8.9 RBC 4.08 Hgb 12.3 Hct 34.6 D MCV 84.8 MCH 30.3 MCHC 35.7 RDW 13.3 Plt Count 209 Sodium 133 L Potassium 4.1 Chloride 103 Carbon Dioxide 20 L BUN 5 L Creatinine 0.5 L Creat Clearance w eGFR > 60 Random Glucose 86 Calcium 8.2 L ass 10 weeks s/p hyperemesis gravidarum plan counselled for small frequent, non spicy, preferably liquids discharge today follow up appt in the clinic in 1 week
== END 2018-03-20 13:50 | disposition home or self-care (01) | DRG 833 ==
LOC: JER 23:49 → JERBED 03-14 06:34 → UNDOADMOB 03-14 06:34 → INTOOBSV 03-14 06:34 → J3W 03-14 08:42 → JERBED 03-14 09:15 → J3W 03-14 09:15 → OBSVTOIN 03-17 13:46
PROVIDERS: ADMIT Obstetrics & Gynecology; ATTEND Obstetrics & Gynecology
DX: O21.1 Hyperemesis gravidarum with metabolic disturbance (principal); O26.891 Other specified pregnancy related conditions, first trimester; Z87.891 Personal history of nicotine dependence; Z3A.10 10 weeks gestation of pregnancy
CPT/HCPCS: 36415; 76705-TC; 76801-TC; 80048; 80053; 80307; 81003; 81015; 83690; 84439; 84443; 84480; 84702; 85025; 85027; 86850; 86900; 86901; 87086; 99284-25; G0378; J7030

== ENCOUNTER 2018-03-24 15:23 | Inpatient (IN) | payer BC ==
[2018-03-24 15:32] VITALS: BMI 27.4
[2018-03-24] MEDS ORDERED: SODIUM CHLORIDE 1,000 ML IV STA ×2 (16:36→18:26)
[2018-03-24] MEDS ORDERED: ONDANSETRON 4 MG/2 ML VIAL IVPB ONE (16:36)
--- NOTE | 2018-03-24 16:38 | PDOC ---
History of Present Illness <Beatriz Ng - Last Filed: 03/24/18 20:11> - History of Present Illness Initial Comments: 03/24/18 16:33 33 yo , s/p elective day 1, with h/o hyperemesis gravidarum who p/w intractable nausea and vomiting. Patient reports one week of non bilious, non bloody emesis despite home regimen ( Zofran, Phenergan, Reglan, B6). Patient reports vomiting x 20+ times per day. Longstanding h/o hyperemesis, but aggravated with recent . Does not tolerate PO intake of foods and fluid. Normal flatulence and bowel habits. Recent admission [facility] (03/14-03/20/18 ) described as hypersalivation vs. hyperemesis. Patient denies WADSWORTH, F,C, Palpitations, orthopnea, PND, leg pain/swelling, CP, SOB , urinary complaints, hematuria, pelvic pain, vaginal discharge, abdominal pain , diarrhea, BPR, constipation, lightheadedness, weakness, sensory changes. PMHx: as noted above ROS: as noted SHx: Denies Etoh, IVDA, [employer] use. 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 <Yaya Renteria - Last Filed: 03/24/18 20:35> - General Chief Complaint: Nausea/Vomiting Stated Complaint: SEVERE VOMITING Time Seen by Provider: 03/24/18 15:57 Past History <Beatriz Ng - Last Filed: 03/24/18 20:11> - Past Medical History Anemia: No Asthma: No Cancer: No Cardiac Disorders: No CVA: No COPD: No CHF: No Dementia: No Diabetes: No GI Disorders: Yes (hyperemesis) Disorders: No HTN: No Hypercholesterolemia: No Liver Disease: No Seizures: No Thyroid Disease: No - Immunization History Immunization Up to Date: No - Suicide/Smoking/Psychosocial Hx Smoking History: Never smoked Have you smoked in the past 12 months: No If you are a former smoker, when did you quit?: over 4 yrs ago Hx Alcohol Use: No Drug/Substance Use Hx: No Substance Use Type: None Hx Substance Use Treatment: No <Yaya Renteria - Last Filed: 03/24/18 20:35> - Past Medical History Allergies/Adverse Reactions: Allergies Allergy/AdvReac Type Severity Reaction Status Date / Time No Known Allergies Allergy Verified 03/24/18 15:28 Home Medications: Ambulatory Orders Metoclopramide HCl [Reglan] 10 mg PO ASDIR 03/05/18 Promethazine HCl [Phenergan Suppository -] 25 mg RC QID PRN #28 supp.rect Pyridoxine HCl (Vitamin B6) [B-] 25 mg MM BID #30 lozenge.hd 03/05/18 Ondansetron [Ondansetron Odt] 8 mg PO BID PRN #30 tab.rapdis 03/14/18 Review of Systems - Review of Systems Comments:: 03/24/18 16:39 GENERAL/CONSTITUTIONAL: No fever or chills. No weakness. HEAD, EYES, EARS, NOSE AND THROAT: No change in vision. No ear pain or discharge. No sore throat. CARDIOVASCULAR: No chest pain or shortness of breath RESPIRATORY: No cough, wheezing, or hemoptysis. GASTROINTESTINAL: + nausea, vomiting. No diarrhea or constipation. GENITOURINARY: No dysuria, frequency, or change in urination. MUSCULOSKELETAL: No joint or muscle swelling or pain. No neck or back pain. SKIN: No rash NEUROLOGIC: No headache, vertigo, loss of consciousness, or change in strength/ sensation. ENDOCRINE: No increased thirst. No abnormal weight change HEMATOLOGIC/LYMPHATIC: No anemia, easy bleeding, or history of blood clots. ALLERGIC/IMMUNOLOGIC: No hives or skin allergy. <Yaya Renteria - Last Filed: 03/24/18 20:35> *Physical Exam - Vital Signs Last Vital Signs Temp Pulse Resp BP Pulse Ox 99.0 F 95 H 22 H 122/77 96 03/24/18 19:56 03/24/18 19:56 03/24/18 19:56 03/24/18 19:56 03/24/18 19:56 <Beatriz Ng - Last Filed: 03/24/18 20:11> - Vital Signs Last Vital Signs Temp Pulse Resp BP Pulse Ox 129 H 18 106/89 100 03/24/18 15:28 03/24/18 15:28 03/24/18 15:28 03/24/18 15:28 - Physical Exam Comments: 03/24/18 16:39 GENERAL: Awake, alert, and fully oriented,. Patient actively retching. HEAD: No signs of trauma, normocephalic, atraumatic EYES: PERRLA, EOMI, sclera anicteric, conjunctiva clear ENT: Hearing grossly normal, nares patent, oropharynx clear without exudates. Moist mucosa NECK: Normal ROM, supple, no lymphadenopathy, JVD, or masses LUNGS: No distress, speaks full sentences, clear to auscultation bilaterally HEART: Regular rate and rhythm, normal S1 and S2, no murmurs, rubs or gallops, peripheral pulses normal and equal bilaterally. ABDOMEN: Soft, nontender, normoactive bowel sounds. No guarding, no rebound. No masses EXTREMITIES : Normal inspection, Normal range of motion, no edema. No clubbing or cyanosis. SKIN: Warm, Dry, normal turgor, no rashes or lesions noted <Yaya Renteria - Last Filed: 03/24/18 20:35> Moderate Sedation - Procedure Monitoring Vital Signs: Procedure Monitoring Vital Signs Temperature 99.0 F 03/24/18 19:56 Pulse Rate 95 H 03/24/18 19:56 Respiratory Rate 22 H 03/24/18 19:56 Blood Pressure 122/77 03/24/18 19:56 O2 Sat by Pulse Oximetry (%) 96 03/24/18 19:56 <Beatriz Ng - Last Filed: 03/24/18 20:11> - Procedure Monitoring Vital Signs: Procedure Monitoring Vital Signs Temperature Pulse Rate 129 H 03/24/18 15:28 Respiratory Rate 18 03/24/18 15:28 Blood Pressure 106/89 03/24/18 15:28 O2 Sat by Pulse Oximetry (%) 100 03/24/18 15:28 <Yaya Renteria - Last Filed: 03/24/18 20:35> ED Treatment Course - LABORATORY CBC & Chemistry Diagram: 03/24/18 16:50 03/24/18 16:50 - ADDITIONAL ORDERS Additional order review: Laboratory Results 03/24/18 03/24/18 16:50 16:50 Sodium 138 Potassium 3.4 L Chloride 94 L Carbon Dioxide 32 Anion Gap 12 BUN 33 H Creatinine 1.0 Creat Clearance w eGFR > 60 Random Glucose 91 Calcium 9.7 Total Bilirubin 0.7 AST 35 ALT 67 H Alkaline Phosphatase 133 H Total Protein 8.5 H Albumin 4.0 Beta HCG, Quant Cancelled 22583.1 03/24/18 16:50 RBC 4.97 MCV 85.7 MCHC 34.7 RDW 13.7 MPV 10.3 Neutrophils % 78.1 Lymphocytes % 11.6 D Monocytes % 9.9 Eosinophils % 0.1 Basophils % 0.3 - Medications Given in the ED: ED Medications Discontinued Medications Generic Name Dose Route Start Last Admin Trade Name Freq PRN Reason Stop Dose Admin Sodium Chloride 1,000 mls @ 1,000 mls/hr 03/24/18 16:36 03/24/18 16:59 Normal Saline - IV 03/24/18 17:35 1,000 mls/hr ASDIR STA Administration Sodium Chloride 1,000 mls @ 1,000 mls/hr 03/24/18 18:26 03/24/18 19:55 Normal Saline - IV 03/24/18 19:25 1,000 mls/hr ASDIR STA Administration Metoclopramide HCl 10 mg 03/24/18 19:06 03/24/18 19:55 Reglan Injection - IVPUSH 03/24/18 19:07 10 mg ONCE ONE Administration Ondansetron HCl 4 mg 03/24/18 16:36 03/24/18 16:55 Zofran Injection IVPB 03/24/18 16:37 4 mg ONCE ONE Administration <Beatriz Ng - Last Filed: 03/24/18 20:11> - LABORATORY CBC & Chemistry Diagram: 03/24/18 16:50 03/24/18 16:50 <Yaya Rentreia - Last Filed: 03/24/18 20:35> Medical Decision Making - Medical Decision Making 03/24/18 16:47 33 yo , s/p elective day 1, with h/o hyperemesis gravidarum who p/w intractable nausea and vomiting. HR 129, BP 106/89, 100 % O2 RA. Physical exam unremarkable. R/o retained POC. No evidence of borhaave, gabi jw. Will asses for hypovolemia, hypoglycemia, electrolyte abnml, metabolic an toxic derangements, acid-base disturbance, infection. ED Course: CBC,CMP, UA, HCG 03/24/18 16:49 Zofran 03/24/18 18:01 WBC: 17.9 alk phosph 133 BUN 33 AST 67 Patient dehydrated 03/24/18 20:33 TVUS with retained POC Patient admitted to [facility] [employer] Operator Melodie Started on Doxycyline, Rocephin Patient endorsed to Dr. Sewell by Dr. Ng <Yaya Renteria - Last Filed: 03/24/18 20:35> *DC/Admit/Observation/Transfer - Discharge Dispostion Decision to Admit order: Yes <Beatriz Ng - Last Filed: 03/24/18 20:11> - Discharge Dispostion Decision to Admit order: Yes - Attestations Physician Attestion: 03/24/18 16:39 I attest to the information provided in this note. <Yaya Renteria - Last Filed: 03/24/18 20:35> Diagnosis at time of Disposition: Endometritis, Retained products of conception following - Discharge Dispostion Condition at time of disposition: Guarded - Patient Instructions Printed Discharge Instructions: DI for Vomiting -- Adult Additional Instructions: Please return to the emergency department with any new or worsening symptoms or concerns. Please follow up with your primary care physician within 72 hours.
[2018-03-24] MEDS ORDERED: ONDANSETRON 4 MG/2 ML VIAL ONE (16:45)
[2018-03-24 17:01] LABS: BASO % 0.3 % (0-2.0); EOS % 0.1 % (0-4.5); HEMATOCRIT 42.6 % (32.4-45.2); HEMOGLOBIN 14.8 GM/dL (10.7-15.3); LYMPH % 11.6 % (8-40); MCH 29.7 pg (25.7-33.7); MCHC 34.7 g/dl (32.0-36.0); MEAN CELL VOLUME 85.7 fl (80-96); MEAN PLT VOLUME 10.3 fl (7.5-11.1); MONO % 9.9 % (3.8-10.2); NEUT % 78.1 % (42.8-82.8); PLATELET COUNT 315 K/MM3 (134-434); RBC 4.97 M/mm3 (3.60-5.2); RDW 13.7 % (11.6-15.6); WHITE BLOOD COUNT 17.9 K/mm3 (4.0-10.0)
--- NOTE | 2018-03-24 18:01 | PDOC ---
Attending Attestation - Resident Resident Name: Yaya Renteria - ED Attending Attestation I have performed the following: I have examined & evaluated the patient, The case was reviewed & discussed with the resident, I agree w/resident's findings & plan, Exceptions are as noted - Physicial Exam PE: 03/24/18 18:05 awake alert lungs clear bilaterally heart rrr no mrg abd soft mild suprapubic ttp. no cva tenderness. skin warm and dry. 03/24/18 19:05 - Medical Decision Making 03/24/18 18:08 differential endometritis, retained products. persistant emesis from hcg normal post procedure complaints. plan labs ua cbc cmp hcg, tvus. pelvis exam eval for sxs of endometritis. <Marta Green - Last Filed: 03/24/18 19:05> - HPI HPI: 03/24/18 18:04 The patient is a 33 year old female, , s/p elective day 1, with a history of hyperemesis gravidarum who presents to the ED for evaluation of intractable nausea and vomiting for one week despite use of Zofran, Phenergan, Reglan, B6. Patient reports she can not tolerate PO intake of foods and fluid. The patient denies chest pain, shortness of breath, headache and dizziness. The patient denies fever, chills, diarrhea and constipation. The patient denies dysuria, frequency, urgency and hematuria. The patient states she feels safe at home with her . She denies any domestic abuse. 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 Sewell - Medical Decision Making 03/24/18 18:04 Documentation prepared by Rosalina Gtz, acting as medical office technology instructor for Marta Green MD <Rosalina Gtz - Last Filed: 03/24/18 19:07>
[2018-03-24 18:05] LABS: ANION GAP 12 MMOL/L (8-16); BILIRUBIN,TOTAL 0.7 mg/dL (0.2-1); CALCIUM 9.7 mg/dL (8.5-10.1); CHLORIDE 94 mmol/L (98-107); CO2 32 mmol/L (21-32); GLUCOSE,RANDOM 91 mg/dL (74-106); SGPT/ALT 67 U/L (13-61); SODIUM 138 mmol/L (136-145)
[2018-03-24 18:06] LABS: ALK PHOS 133 U/L (45-117); BLOOD UREA NITROGEN 33 mg/dL (7-18); POTASSIUM 3.4 mmol/L (3.5-5.1); SGOT/AST 35 U/L (15-37); TOT PROT 8.5 g/dl (6.4-8.2)
[2018-03-24] MEDS ORDERED: METOCLOPRAMIDE HCL INJECTION 10 MG/2 ML VIAL IVPUSH ONE (19:06)
[2018-03-24] MEDS ORDERED: METOCLOPRAMIDE HCL INJECTION 10 MG/2 ML VIAL ONE (19:44)
[2018-03-24] MEDS ORDERED: CEFTRIAXONE 2 GM/100 ML BAG IVPB ONE (20:16)
[2018-03-24] MEDS ORDERED: DOXYCYCLINE INJECTION 100 MG in DEXTROSE 5%-WATER - 150 ML IVPB ONE (20:30)
[2018-03-24] MEDS ORDERED: DOXYCYCLINE HYCLATE 100 MG VIAL ONE (20:37)
[2018-03-24] MEDS ORDERED: CEFOXITIN SODIUM 2 GM in DEXTROSE 5%-WATER - 100 ML IVPB SCH (21:00)
[2018-03-24] MEDS: CEFOXITIN SODIUM 2 GM in DEXTROSE 5%-WATER - 100 ML IVPB SCH (21:41)
[2018-03-25] MEDS ORDERED: DEXTROSE 5%-LACTATED RINGERS 1,000 ML IV SCH (01:00)
[2018-03-25] MEDS: ONDANSETRON 4 MG/2 ML VIAL IVPB SCH ×3 (01:07→18:24)
[2018-03-25] MEDS ORDERED: CEFOXITIN SODIUM 2 GM in DEXTROSE 5%-WATER - 100 ML IVPB SCH (03:00)
[2018-03-25] MEDS: CEFOXITIN SODIUM 2 GM in DEXTROSE 5%-WATER - 100 ML IVPB SCH ×2 (03:13→09:32)
[2018-03-25] MEDS ORDERED: PROMETHAZINE HCL 25 MG/1 ML VIAL IM ONE (05:15)
[2018-03-25] MEDS ORDERED: METHYLERGONOVINE MALEATE 0.2 MG/1 ML AMP IM PRN (10:41)
--- NOTE | 2018-03-25 10:41 | HP ---
Past Medical History - Admission Chief Complaint: Vomiting History of Present Illness: 33 yo , s/p elective day 1, with h/o hyperemesis gravidarum who p/w intractable nausea and vomiting. Patient reports one week of non bilious, non bloody emesis despite home regimen ( Zofran, Phenergan, Reglan, B6). Patient reports vomiting x 20+ times per day. Longstanding h/o hyperemesis, but aggravated with recent . Does not tolerate PO intake of foods and fluid. Normal flatulence and bowel habits. Recent admission [facility] (03/14-03/20/18 ) described as hypersalivation vs. hyperemesis. History Source: Patient Limitations to Obtaining History: No Limitations - Past Medical History Gastrointestinal: Yes: Other (hyperemesis gravidarum) - Past Surgical History Hx Myomectomy: No Hx Transabdominal Cerclage: No - Smoking History Smoking history: Never smoked Have you smoked in the past 12 months: No If you are a former smoker, when did you quit?: over 4 yrs ago - Alcohol/Substance Use Hx Alcohol Use: No History of Substance Use: reports: None - Social History History of Recent Travel: No Home Medications - Allergies Allergies/Adverse Reactions: Allergies Allergy/AdvReac Type Severity Reaction Status Date / Time No Known Allergies Allergy Verified 03/24/18 15:28 - Home Medications Home Medications: Ambulatory Orders Metoclopramide HCl [Reglan] 10 mg PO ASDIR 03/05/18 Promethazine HCl [Phenergan Suppository -] 25 mg RC QID PRN #28 supp.rect Pyridoxine HCl (Vitamin B6) [B-Martín] 25 mg MM BID #30 lozenge.hd 03/05/18 Ondansetron [Ondansetron Odt] 8 mg PO BID PRN #30 tab.rapdis 03/14/18 Family Disease History - Family Disease History Family History: Unremarkable Review of Systems - Review of Systems Constitutional: reports: Weakness Eyes: reports: No Symptoms HENT: reports: No Symptoms Neck: reports: No Symptoms Cardiovascular: reports: No Symptoms Respiratory: reports: No Symptoms Gastrointestinal: reports: Vomiting Breasts: reports: No Symptoms Reported Musculoskeletal: reports: No Symptoms Integumentary: reports: No Symptoms Neurological: reports: No Symptoms Endocrine: reports: No Symptoms Psychiatric: reports: No Symptoms Pain Intensity: 2 Physical Exam - Maternity Vital Signs: Vital Signs Temperature 98.7 F 03/25/18 06:00 Pulse Rate 64 03/25/18 06:00 Respiratory Rate 18 03/25/18 06:00 Blood Pressure 112/67 03/25/18 06:00 O2 Sat by Pulse Oximetry (%) 100 03/24/18 22:36 Constitutional: Yes: Well Nourished Eyes: Yes: Conjunctiva Clear HENT: Yes: Atraumatic Neck: Yes: Supple Cardiovascular: Yes: Regular Rate and Rhythm Lungs: Clear to auscultation Breast(s): Yes: WNL - Physical Exam Psychiatric: Yes: Alert, Oriented - Labs Lab Results: CBC, BMP 03/24/18 16:50 03/24/18 16:50 Assessment/Plan Status post termination of Vomiting R/O product retained POC R/O uterine perforation R/O bowel obstruction Abdominal X-ray Methergine Continue IV antibiotic Repeat [facility] in am
--- NOTE | 2018-03-25 12:53 | PN ---
Progress Note (short form) - Note Progress Note: 33yo s/p D&C on 03/23 at [facility] in [place] who presented with persistent N/V, hypersalvation. Sonogram showed retained POC - 6cm. Has been NPO all day. Minimal bleeding. Not interested in taking Methergine. Discussed suction D&C- risk of procedure including bleeding, infection and uterine perforation requiring diagnostic laparoscopy discussed. All questions answered. Consent signed. OR notified. Billie Nunez MD
[2018-03-25] MEDS ORDERED: ONDANSETRON 4 MG/2 ML VIAL IVPUSH PRN (13:40)
[2018-03-25] MEDS ORDERED: PROMETHAZINE HCL 25 MG/1 ML VIAL IVPUSH PRN (13:40)
[2018-03-25] MEDS ORDERED: LACTATED RINGERS SOLUTION 1,000 ML IV SCH (13:45)
[2018-03-25] MEDS ORDERED: MIDAZOLAM HCL 2 MG/2 ML SINGLE DOSE VIAL ONE (13:46)
[2018-03-25] MEDS ORDERED: PROPOFOL 20 ML ONE (13:46)
[2018-03-25] MEDS ORDERED: ceFAZolin SODIUM 1 GM VIAL IVPB ONE (14:05)
[2018-03-25] MEDS ORDERED: ceFAZolin SODIUM 1 GM VIAL ONE (14:09)
[2018-03-25] MEDS ORDERED: SODIUM CHLORIDE 0.9% P/F 10 ML VIAL IJ ONE (14:09)
[2018-03-25] MEDS ORDERED: LIDOCAINE HCL/PF 2% SDV 5ML VIAL ONE (14:09)
[2018-03-25] MEDS ORDERED: KETOROLAC TROMETHAMINE 30 MG/1 ML VIAL ONE (14:16)
--- NOTE | 2018-03-25 14:40 | OP ---
Operative Note - Note: Operative Date: 03/25/18 Pre-Operative Diagnosis: Retained Products of Conception Operation: Suction D&C Findings: 10wk size uterus, retained products of conception Post-Operative Diagnosis: Same as Pre-op Surgeon: Billie Nunez Anesthesia: MAC Specimens Removed: Products of Conception Estimated Blood Loss (mls): 20 Fluid Volume Replaced (mls): 150 Operative Report Dictated: Yes
[2018-03-25 20:16] VITALS: BP 108/71; PULSE 70; TEMP 99
--- NOTE | 2018-03-25 21:40 | OP ---
DATE OF OPERATION: 03/25/2018 PREOPERATIVE DIAGNOSIS: Retained products of conception. POSTOPERATIVE DIAGNOSIS: Retained products of conception. PROCEDURE: Suction dilatation and curettage. ANESTHESIA: MAC. ESTIMATED BLOOD LOSS: 20 mL INTRAVENOUS FLUIDS: 150 mL URINE OUTPUT: Not measured. FINDINGS: [id number] uterus with retained products of conception. Normal cervix. Normal vagina. SPECIMENS: Retained products of conception. COMPLICATIONS: None. CONDITION: Stable to recovery room. NATURE OF PROCEDURE: After appropriate consents were signed, patient was taken to the operating room where anesthesia was administered. She was placed in dorsal lithotomy position. The surgical field was prepped and draped in a normal sterile fashion. Sterile speculum was inserted into the vagina with good visualization of the cervix. The anterior lip of the cervix was grasped with a single-tooth tenaculum. The cervix then was dilated with Souza dilators up to 28 to accommodate a 10 suction tip which was inserted. Suction was then obtained, and in 2 passes, moderate products of conception were removed. Suction tip was removed. Curettage was then undertaken with a gentle manipulation. Uterine cry was noted in all 4 quadrants of the uterus. Curettage was removed. No active bleeding was seen. The tenaculum was removed from the anterior lip of the cervix. Bleeding sites were made hemostatic with pressure. Speculum was then removed. Bimanual exam was performed after, which revealed a uterus that was 8 week size and firm, and no bleeding was noted. Patient was taken from the operating room to recovery room in stable condition. The sponge, lap, needle counts were all correct. She did receive doxycycline during her admission and 1 g of Ancef during the procedure. MD JAC GILLETTE/[id number]
[2018-03-25] MEDS ORDERED: DOXYCYCLINE INJECTION 100 MG in DEXTROSE 5%-WATER - 100 ML IVPB SCH (22:00)
--- NOTE | 2018-03-27 16:53 | PATH ---
Surgical Pathology Report Patient Name: LAWSON AGUAYO Med. Rec. 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 Electronically Signed Julia Altamirano M.D. Gross Description Received in formalin labeled "products of conception," is an 11.5 x 9.0 1.0 cm aggregate of red-brown blood clot, possibly containing soft tissue fragments. No definite villous tissue or somatic tissue is identified. A vendor representatives portion is submitted in 3 cassettes. /03/26/2018 saudi03/26/2018
== END 2018-03-25 19:35 | disposition home or self-care (01) | DRG 770 ==
LOC: JER 15:23 → JERBED 20:11 → J3W 23:15
PROVIDERS: ADMIT Obstetrics & Gynecology; ATTEND Obstetrics & Gynecology
PROC: 10D17ZZ Extraction of Products of Conception, Retained, Via Natural or Artificial Opening (ICD-10-PCS; principal; 2018-03-25 14:00)
DX: O03.0 Genital tract and pelvic infection following incomplete spontaneous abortion (principal); N71.9 Inflammatory disease of uterus, unspecified
CPT/HCPCS: 36415; 74018-TC-FY; 76830-TC; 80053; 84702; 85025; 87040; 88305-TC; 94760; 99285-25; J7030

== ENCOUNTER 2018-04-26 16:09 | Emergency (ER) | payer BC ==
--- NOTE | 2018-04-26 16:29 | PDOC ---
Rapid Medical Evaluation Time Seen by Provider: 04/26/18 16:28 Medical Evaluation: Allergies Allergy/AdvReac Type Severity Reaction Status Date / Time No Known Allergies Allergy Verified 03/24/18 15:28 04/26/18 16:28 I have performed a brief in-person evaluation of this patient. The patient presents with a chief complaint of: body aches w/ n/v, low grade fever, cough and WADSWORTH since this am. No pmhx Pertinent physical exam findings:alex uncomfortable at triage w/ Temp of 101.9 w / HR 111 I have ordered the following:flu (sent), tylenol and zofran (reports nausea currently) The patient will proceed to the ED for further evaluation. Discharge Disposition - Diagnosis Viral syndrome - Referrals - Patient Instructions - Post Discharge Activity
[2018-04-26 16:32] VITALS: BP 120/60; PULSE 111; TEMP 101.9; BMI 29.2
[2018-04-26] MEDS ORDERED: ACETAMINOPHEN 325 MG TABLET (FP) PO ONE (16:32)
[2018-04-26] MEDS ORDERED: ONDANSETRON *ODT* 4 MG TABLET SL ONE (16:33)
[2018-04-26] MEDS ORDERED: ONDANSETRON *ODT* 4 MG TABLET ONE (16:57)
[2018-04-26] MEDS ORDERED: ACETAMINOPHEN 325 MG TABLET (FP) ONE (16:57)
--- NOTE | 2018-04-26 17:12 | PDOC ---
History of Present Illness - General Chief Complaint: Cold Symptoms Stated Complaint: Nausea/Vomiting/FEVER Time Seen by Provider: 04/26/18 16:28 History Source: Patient Exam Limitations: No Limitations - History of Present Illness Initial Comments: 04/26/18 17:17 Acute onset of fevers, chills, bodyaches, sore throat pain ear congestion moist nonproductive cough , and nausea that started this morning. No one else at home is sick although had bronchitis a few weeks ago. Has taken no medications for result Timing/Duration: reports: getting worse Severity: reports: mild, moderate Associated Symptoms: reports: cough, dizziness, earache, fever/chills, nasal congestion, nasal drainage Past History - Travel Traveled outside of the country in the last 30 days: No Close contact w/someone who was outside of country & ill: No - Past Medical History Allergies/Adverse Reactions: Allergies Allergy/AdvReac Type Severity Reaction Status Date / Time No Known Allergies Allergy Verified 04/26/18 16:28 Home Medications: Ambulatory Orders Ondansetron [Zofran *Odt*] 4 mg SL PRN PRN #14 od.tablet 04/26/18 Oseltamivir Phosphate [Tamiflu -] 75 mg PO BID #10 capsule 04/26/18 Anemia: No Asthma: No Cancer: No Cardiac Disorders: No CVA: No COPD: No CHF: No Dementia: No Diabetes: No GI Disorders: Yes (hyperemesis) Disorders: No HTN: No Hypercholesterolemia: No Liver Disease: No Seizures: No Thyroid Disease: No - Surgical History Abdominal Surgery: No Appendectomy: No Cardiac Surgery: No Cholecystectomy: No Lung Surgery: No Neurologic Surgery: No Orthopedic Surgery: No - Immunization History Immunization Up to Date: No - Suicide/Smoking/Psychosocial Hx Smoking History: Never smoked Have you smoked in the past 12 months: No If you are a former smoker, when did you quit?: over 4 yrs ago Hx Alcohol Use: No Drug/Substance Use Hx: No Substance Use Type: None Hx Substance Use Treatment: No Review of Systems - Review of Systems Able to Perform ROS?: Yes Is the patient limited Bulgarian proficient: Yes Constitutional: Yes: Symptoms Reported, See HPI, Chills, Fever, Loss of Appetite , Malaise HEENTM: Yes: Symptoms Reported, See HPI, Nose Pain, Nose Congestion Respiratory: Yes: Symptoms reported, See HPI, Cough ABD/GI: Yes: Symptoms Reported, See HPI, Nausea, Vomiting : Yes: See HPI. No: Symptoms Reported Integumentary: Yes: Symptoms Reported Neurological: Yes: Symptoms reported, See HPI, Headache All Other Systems: Reviewed and Negative *Physical Exam - Vital Signs Last Vital Signs Temp Pulse Resp BP Pulse Ox 101.9 F H 111 H 17 120/60 97 04/26/18 16:28 04/26/18 16:28 04/26/18 16:28 04/26/18 16:28 04/26/18 16:28 - Physical Exam General Appearance: Yes: Nourished, Appropriately Dressed, Apparent Distress, Mild Distress HEENT: positive: EOMI, HERIBERTO, TMs Normal (congested but landmarks easily visualized), Pharyngeal Erythema, Rhinorrhea. negative: Tonsillar Exudate, Sinus Tenderness Neck: positive: Tender, Supple, Lymphadenopathy (R), Lymphadenopathy (L) Respiratory/Chest: positive: Lungs Clear (but coarse ), Normal Breath Sounds. negative: Respiratory Distress Gastrointestinal/Abdominal: positive: Soft. negative: Tender, Distended, Guarding, Rebound Musculoskeletal: positive: Normal Inspection Extremity: positive: Normal Inspection, Normal Range of Motion. 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 NML intact, Fully Oriented, Alert, Normal Mood/ Affect, Normal Response, Motor Strength 5/5 Moderate Sedation - Procedure Monitoring Vital Signs: Procedure Monitoring Vital Signs Temperature 101.9 F H 04/26/18 16:28 Pulse Rate 111 H 04/26/18 16:28 Respiratory Rate 17 04/26/18 16:28 Blood Pressure 120/60 04/26/18 16:28 O2 Sat by Pulse Oximetry (%) 97 04/26/18 16:28 ED Treatment Course - Medications Given in the ED: ED Medications Discontinued Medications Generic Name Dose Route Start Last Admin Trade Name Freq PRN Reason Stop Dose Admin Ondansetron HCl 4 mg 04/26/18 16:33 04/26/18 17:00 Zofran Odt - SL 04/26/18 16:34 4 mg ONCE ONE Administration Progress Note - Progress Note Progress Note: Influenza test is negative however patient has clinical appearance of influenza including fevers, body aches, moist nonproductive cough therefore will treat with Tamiflu is within window and provide Zofran for nausea *DC/Admit/Observation/Transfer Diagnosis at time of Disposition: Influenzal acute upper respiratory infection - Discharge Dispostion Disposition: HOME Condition at time of disposition: Stable Decision to Admit order: No - Referrals Referrals: Billie Nunez MD [Primary Care Provider] - - Patient Instructions Printed Discharge Instructions: DI for Viral Upper Respiratory Infection -- Adult Additional Instructions: Rest, drink lots of fluids: Teas, water, soups, Pedialyte Saltwater gargles Steamy showers/seem to face break up mucus Old-fashioned treatments help! Avoid contact with others until fevers and cough resolved as this is very contagious Lots of handwashing and good hygiene Continue [id number] medications for symptomatic relief Tylenol or Motrin for fever and pain Take all of Tamiflu as directed: 1 tab every 12 hours for 5 days Followup with private physician in one to 2 days as needed or if worsening Return to emergency department for worsened symptoms, fevers, dehydration Influenza takes between 5 and 7 days for resolution To not participate in any activity, work, or school until fevers and cough are gone for at least one day - Post Discharge Activity Forms/Work/School Notes: Back to Work
== END 2018-04-26 17:35 | disposition home or self-care (01) ==
LOC: JERFT 16:09
DX: J11.1 Influenza due to unidentified influenza virus with other respiratory manifestations (principal)
CPT/HCPCS: 84703; 87804; 99281-25; Q0162

== ENCOUNTER 2018-11-03 08:39 | Emergency (ER) | payer BC ==
[2018-11-03 08:50] VITALS: BP 101/65; PULSE 69; TEMP 97.8; BMI 30.5
--- NOTE | 2018-11-03 09:34 | PDOC ---
History of Present Illness - General Chief Complaint: Pain Stated Complaint: RT FOOT PAIN Time Seen by Provider: 11/03/18 09:07 History Source: Patient Exam Limitations: No Limitations - History of Present Illness Initial Comments: 11/03/18 09:33 States was walking down stairs last night, tripped and fell twisting her right ankle in multiple directions. States is been swollen and painful since. Occurred: reports: yesterday Severity: reports: moderate Pain Location: reports: lower extremity Method of Injury: Yes: fall (right ankle) Modifying Factors: improves with: cold therapy, pain medication Loss of Consciousness: no loss of consciousness Associated Symptoms (Fall): denies symptoms Past History - Travel Traveled outside of the country in the last 30 days: No Close contact w/someone who was outside of country & ill: No - Past Medical History Allergies/Adverse Reactions: Allergies Allergy/AdvReac Type Severity Reaction Status Date / Time No Known Allergies Allergy Verified 11/03/18 08:50 Home Medications: Ambulatory Orders Ondansetron [Zofran *Odt*] 4 mg SL PRN PRN #14 od.tablet 04/26/18 Oseltamivir Phosphate [Tamiflu -] 75 mg PO BID #10 capsule 04/26/18 Anemia: No Asthma: No Cancer: No Cardiac Disorders: No CVA: No COPD: No CHF: No Dementia: No Diabetes: No GI Disorders: Yes (hyperemesis) Disorders: No HTN: No Hypercholesterolemia: No Liver Disease: No Seizures: No Thyroid Disease: No - Surgical History Abdominal Surgery: No Appendectomy: No Cardiac Surgery: No Cholecystectomy: No Lung Surgery: No Neurologic Surgery: No Orthopedic Surgery: No - Immunization History Immunization Up to Date: No - Suicide/Smoking/Psychosocial Hx Smoking History: Never smoked Have you smoked in the past 12 months: No If you are a former smoker, when did you quit?: over 4 yrs ago Hx Alcohol Use: No Drug/Substance Use Hx: No Substance Use Type: None Hx Substance Use Treatment: No Review of Systems - Review of Systems Able to Perform ROS?: Yes Is the patient limited Bhutanese proficient: Yes Constitutional: Yes: Symptoms Reported, See HPI. No: Chills, Malaise HEENTM: No: Symptoms Reported Musculoskeletal: Yes: Symptoms Reported, See HPI, Joint Pain, Joint Swelling Integumentary: Yes: Symptoms Reported, See HPI, Bruising All Other Systems: Reviewed and Negative *Physical Exam - Vital Signs Last Vital Signs Temp Pulse Resp BP Pulse Ox 97.8 F 69 18 101/65 7 L 11/03/18 08:47 11/03/18 08:47 11/03/18 08:47 11/03/18 08:47 11/03/18 08:47 - Physical Exam General Appearance: Yes: Nourished, Appropriately Dressed, Apparent Distress, Mild Distress HEENT: positive: HERIBERTO, Normal ENT Inspection, TMs Normal, Pharynx Normal Neck: positive: Supple. negative: Tender Musculoskeletal: positive: Normal Inspection Extremity: positive: Normal Capillary Refill, Swelling. negative: Normal Inspection, Normal Range of Motion (limited secondary to tenderness to the lateral aspect of right foot. 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 intact, Fully Oriented, Normal Response, Motor Strength 5/5 Procedures - Splinting Splint Location: Right: Ankle Pre-Proc Neuro Vasc Exam: normal Pre-Made Type: aircast ED Treatment Course - RADIOLOGY Radiology Studies Ordered: Category Date Time Status ANKLE & FOOT-RIGHT* [RAD] Stat Radiology 11/03/18 09:21 Ordered Progress Note - Progress Note Progress Note: X-ray negative for fractures or dislocations, will treat for ankle sprain, and have follow-up with orthopedist as *DC/Admit/Observation/Transfer Diagnosis at time of Disposition: Right ankle sprain Qualifiers: Encounter type: initial encounter Involved ligament of ankle: unspecified ligament Qualified Code(s): S93.401A - Sprain of unspecified ligament of right ankle, initial encounter - Discharge Dispostion Disposition: HOME Condition at time of disposition: Stable Decision to Admit order: No - Referrals Referrals: Cyrus Li MD [Primary Care Provider] - Prakash Liang MD [Staff Physician] - - Patient Instructions Printed Discharge Instructions: DI for Ankle Sprain Additional Instructions: Rest, ice to area on and off for 15 minutes 4-6 times a day Avoid heavy lifting or exercise until pain and swelling is resolved or until further directed Keep area highly elevated to reduce swelling Use splints/Jaspal wrap as directed Followup with orthopedist in one to 2 days if not improving, if significantly improved may wait one week for followup with orthopedist May use ibuprofen every 6 hours as needed for pain - Post Discharge Activity Forms/Work/School Notes: Back to Work
== END 2018-11-03 09:38 | disposition home or self-care (01) ==
LOC: JERFT 08:39
PROC: 2W3QX1Z Immobilization of Right Lower Leg using Splint (ICD-10-PCS; principal; 2018-11-03)
DX: S93.401A Sprain of unspecified ligament of right ankle, initial encounter (principal); W10.8XXA Fall (on) (from) other stairs and steps, initial encounter; Y93.89 Activity, other specified; Y92.038 Other place in apartment as the place of occurrence of the external cause; Y99.8 Other external cause status
CPT/HCPCS: 73610-TC-RT-FY; 73630-TC-RT-FY; 99282-25

== ENCOUNTER 2019-01-04 19:40 | Emergency (ER) | payer BC ==
[2019-01-04 19:51] VITALS: BP 112/71; PULSE 63; TEMP 98.4; BMI 30.4
[2019-01-04] MEDS ORDERED: FLUCONAZOLE 50 MG TABLET PO ONE (20:25)
--- NOTE | 2019-01-04 20:28 | PDOC ---
History of Present Illness - General Stated Complaint: INFECTION Time Seen by Provider: 01/04/19 19:54 History Source: Patient Exam Limitations: No Limitations - History of Present Illness Initial Comments: 01/04/19 20:24 HISTORY OF PRESENT ILLNESS: This is a 33-year-old woman with history of multiple yeast infections and urinary tract infections presents emergency department for evaluation of vaginal itching and burning over the past 4 days. Patient reports increased swelling bilateral labia states she was seen in an urgent care center and told she may have had genital herpes. Patient denies dyspareunia or vaginal discharge. Patient reports she had an IUD placed 2 weeks ago and has not had intercourse in approximately one month. She reports having unprotected sex in a monogamous/initial for greater than 8 years. No recent travel or sick contacts. PAST MEDICAL HISTORY: Denies past medical history SURGICAL HISTORY: Denies ALLERGIES: No known drug allergies REVIEW OF SYSTEMS General/Constitutional: Denies fever or chills. Denies weakness, weight change. HEENT: Denies change in vision. Denies ear pain or discharge. Denies sore throat. Cardiovascular: Denies chest pain or shortness of breath. Respiratory: Denies cough, wheezing, or hemoptysis. Gastrointestinal: Denies nausea, vomiting, diarrhea or constipation. Denies rectal bleeding. Genitourinary: see HPI Musculoskeletal: Denies joint or muscle swelling or pain. Denies neck or back pain. Skin and breasts: Denies rash or easy bruising. Neurologic: Denies headache, vertigo, loss of consciousness, or loss of sensation. Psychiatric: Denies depression or anxiety. Endocrine: Denies increased thirst. Denies abnormal weight change. Hematologic/Lymphatic: Denies anemia, easy bleeding, or history of blood clots. Allergic/Immunologic: Denies hives or skin allergy. Denies latex allergy. PHYSICAL EXAM General Appearance: Well-appearing, appropriately dressed. No apparent distress , no intoxication. Gastrointestinal/Abdominal: Normal bowel sounds. Abdomen soft, non-distended. No tenderness or rebound tenderness. No organomegaly, pulsatile mass, guarding, hernia, hepatomegaly, splenomegaly. Lymphatic: No adenopathy, tenderness. 01/04/19 20:37 Past History - Past Medical History Allergies/Adverse Reactions: Allergies Allergy/AdvReac Type Severity Reaction Status Date / Time No Known Allergies Allergy Verified 11/03/18 08:50 Home Medications: Ambulatory Orders Ondansetron [Zofran *Odt*] 4 mg SL PRN PRN #14 od.tablet 04/26/18 Oseltamivir Phosphate [Tamiflu -] 75 mg PO BID #10 capsule 04/26/18 Fluconazole 150 mg PO ONCE #1 tablet 01/04/19 Miconazole Nitrate [Monistat 7] 45 gm VG DAILY #7 cream.appl 01/04/19 Anemia: No Asthma: No Cancer: No Cardiac Disorders: No CVA: No COPD: No CHF: No Dementia: No Diabetes: No GI Disorders: Yes (hyperemesis) Disorders: No HTN: No Hypercholesterolemia: No Liver Disease: No Seizures: No Thyroid Disease: No - Surgical History Abdominal Surgery: No Appendectomy: No Cardiac Surgery: No Cholecystectomy: No Lung Surgery: No Neurologic Surgery: No Orthopedic Surgery: No - Immunization History Immunization Up to Date: No - Suicide/Smoking/Psychosocial Hx Smoking History: Never smoked Have you smoked in the past 12 months: No If you are a former smoker, when did you quit?: over 4 yrs ago Hx Alcohol Use: No Drug/Substance Use Hx: No Substance Use Type: None Hx Substance Use Treatment: No *Physical Exam - Vital Signs Last Vital Signs Temp Pulse Resp BP Pulse Ox 98.4 F 63 19 112/71 100 01/04/19 19:48 01/04/19 19:48 01/04/19 19:48 01/04/19 19:48 01/04/19 19:48 - Physical Exam Comments:: 01/04/19 20:25 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 Female Pelvic Exam: positive: cervical os closed, discharge (thick white). negative: normal external exam (excoriated labia with right worse than left), CMT, adnexal tenderness Medical Decision Making - Medical Decision Making 01/04/19 20:26 A/P: 33-year-old woman with acute candidal infection of the vagina Urinalysis, urine , urine culture Diflucan 150 mg orally now Discharge with prescription for Diflucan to be taken in 72 hours and Monistat to treat external symptoms 01/04/19 20:51 Urinalysis is not suggestive of infection. Patient is not . I will discharge the patient home with prescription for fluconazole 150 mg to be taken in 72 hours and Monistat cream. I discussed the physical exam findings, ancillary test results and final diagnoses with the patient. I answered all of the patient's questions. The patient was satisfied with the care received and felt comfortable with the discharge plan and treatment plan. The patient will call their primary care physician within 24 hours to arrange follow-up and will return to the Emergency Department with any new, persistent or worsening symptoms. Portions of this note have been documented using voice recognition software. As a result, errors may occur in the three dimensional art instructor process. Effort has been made to correct all grammatical and three dimensional art instructor error, but some may have been missed. *DC/Admit/Observation/Transfer Diagnosis at time of Disposition: Candidiasis of female genitalia - Discharge Dispostion Disposition: HOME Condition at time of disposition: Stable Decision to Admit order: No - Prescriptions Prescriptions: Fluconazole 150 mg PO ONCE #1 tablet Miconazole Nitrate [Monistat 7] 45 gm VG DAILY #7 cream.appl - Referrals - Patient Instructions Additional Instructions: Take fluconazole 150 mg one dose on 01/07/19. Use Monistat every night for the next 7 days. Return to emergency department for any new or worsening symptoms. It may be a good idea to eat daily yogurt to help prevent future infections. Thank you very much for choosing us to provide your emergent health care needs. - Post Discharge Activity
[2019-01-04] MEDS ORDERED: FLUCONAZOLE 100 MG TABLET (UD) ONE (20:29)
[2019-01-04 20:46] LABS: EPI CELLS 0.8 /HPF (0-5/HPF); HYALINE CASTS 1 /lpf (0-8); URINE APPEARANCE CLEAR; URINE BACTERIA 4.7 /hpf (NEGATIVE); URINE BILIRUBIN NEGATIVE (NEGATIVE); URINE COLOR YELLOW; URINE GLUCOSE (UA) NEGATIVE (NEGATIVE); URINE KETONE NEGATIVE (NEGATIVE); URINE LEUK ESTERASE TRACE (NEGATIVE); URINE NITRITE NEGATIVE (NEGATIVE); URINE PROTEIN NEGATIVE (NEGATIVE); URINE RBC 2 /hpf (0-4); URINE WBC 0 /hpf (0-5)
== END 2019-01-04 21:08 | disposition home or self-care (01) ==
LOC: JERFT 19:40
DX: B37.3 Candidiasis of vulva and vagina (principal); Z97.5 Presence of (intrauterine) contraceptive device
CPT/HCPCS: 81003; 84703; 87086; 99281-25